=== PATIENT | female | born 1960 | race Caucasian/White ===

== ENCOUNTER 2016-08-02 13:11 | Emergency (ER) | payer MEDICARE, OTHER ==
[2016-08-02] MEDS ORDERED: levETIRAcetam 250 MG TABLET PO STA (15:40)
[2016-08-02] MEDS ORDERED: LORazepam 2 MG/ML SYRINGE IVP STA (15:46)
[2016-08-02] MEDS ORDERED: LORazepam 2 MG/ML SYRINGE ONE (15:51)
[2016-08-02] MEDS ORDERED: levETIRAcetam 250 MG TABLET ONE (15:51)
== END 2016-08-02 16:22 | disposition home or self-care (01) ==
DX: I67.3 Progressive vascular leukoencephalopathy (principal); R56.9 Unspecified convulsions; R29.704 NIHSS score 4; I45.10 Unspecified right bundle-branch block; Z86.73 Personal history of transient ischemic attack (TIA), and cerebral infarction without residual deficits; Z79.82 Long term (current) use of aspirin; E03.9 Hypothyroidism, unspecified; Z87.891 Personal history of nicotine dependence
CPT/HCPCS: 36415; 51701; 70450; 80053; 81003; 83690; 85025; 93005; 93010; 96374; 99284; 99285; A9270; J2060

== ENCOUNTER 2016-09-22 12:52 | Outpatient (CLI) | payer MEDICARE, OTHER | END 2016-09-22 12:53 | disposition home or self-care (01) | DX: M75.52 Bursitis of left shoulder (principal); M75.102 Unspecified rotator cuff tear or rupture of left shoulder, not specified as traumatic; M67.88 Other specified disorders of synovium and tendon, other site ==

== ENCOUNTER 2016-11-13 11:26 | Outpatient (CLI) | payer MEDICARE, OTHER | END 2016-11-13 11:27 | disposition home or self-care (01) | DX: R33.9 Retention of urine, unspecified (principal); E03.9 Hypothyroidism, unspecified ==

== ENCOUNTER 2016-11-13 15:00 | Outpatient (CLI) | payer MEDICARE, OTHER | END 2016-11-13 15:01 | disposition home or self-care (01) | DX: M51.26 Other intervertebral disc displacement, lumbar region (principal); M51.27 Other intervertebral disc displacement, lumbosacral region; M51.36 Other intervertebral disc degeneration, lumbar region; M43.16 Spondylolisthesis, lumbar region; M47.896 Other spondylosis, lumbar region; M47.897 Other spondylosis, lumbosacral region; M51.24 Other intervertebral disc displacement, thoracic region; M43.14 Spondylolisthesis, thoracic region; E03.9 Hypothyroidism, unspecified; R33.9 Retention of urine, unspecified ==

== ENCOUNTER 2016-11-15 09:15 | Outpatient (CLI) | payer MEDICARE, OTHER | END 2016-11-15 09:16 | DX: R33.9 Retention of urine, unspecified (principal); M54.5 Low back pain ==

== ENCOUNTER 2016-11-28 10:56 | Outpatient (CLI) | payer MEDICARE, OTHER | END 2016-11-28 10:57 | disposition home or self-care (01) | DX: R06.00 Dyspnea, unspecified (principal) ==

== ENCOUNTER 2017-01-22 09:20 | Outpatient (CLI) | payer MEDICARE, OTHER | END 2017-01-22 09:21 | disposition home or self-care (01) | LOC: LAB.WCP 09:20 | PROVIDERS: ATTEND Family Medicine | DX: N39.0 Urinary tract infection, site not specified (principal) | CPT/HCPCS: 87077; 87086 ==

== ENCOUNTER 2017-02-08 15:20 | Outpatient (CLI) | payer MEDICARE, OTHER | END 2017-02-08 15:21 | disposition home or self-care (01) | LOC: LAB.R 15:20 | PROVIDERS: ATTEND Family Medicine | DX: N39.0 Urinary tract infection, site not specified (principal) | CPT/HCPCS: 87077; 87086 ==

== ENCOUNTER 2017-02-19 13:12 | Outpatient (CLI) | payer MEDICARE, OTHER ==
[2017-02-19 19:34] LABS: BASOPHILS # (AUTO) 0.1 10^3/uL (0.0-0.1); BASOPHILS % (AUTO) 0.9 %; EOSINOPHILS # (AUTO) 0.2 10^3/uL (0.0-0.7); EOSINOPHILS % (AUTO) 2.2 %; HCT - HEMATOCRIT 38.6 % (37.0-47.0); HGB - HEMOGLOBIN 13.4 g/dL (12.0-16.0); LYMPHOCYTES # (AUTO) 2.3 10^3/uL (1.5-3.5); LYMPHOCYTES % (AUTO) 27.1 %; MEAN CORPUSCULAR HGB CONC 34.7 g/dL (32.0-36.0); MEAN PLATELET VOLUME 7.6 fL (7.9-10.8); MONOCYTES # (AUTO) 0.6 10^3/uL (0.0-1.0); MONOCYTES % (AUTO) 7.2 %; NEUTROPHILS # (AUTO) 5.3 10^3/uL (1.5-6.6); NEUTROPHILS % (AUTO) 62.6 %; NUCLEATED RED BLOOD CELLS AUTO 0.1 /100WBC; RED BLOOD COUNT 4.06 10^6/uL (4.20-5.40); RED CELL DISTRIBUTION WIDTH 12.4 % (12.0-15.0); UNCORRECTED WHITE BLOOD COUNT 8.4 x10^3/uL; WHITE BLOOD COUNT 8.4 x10^3/uL (4.8-10.8)
[2017-02-19 19:59] LABS: CALCIUM 9.9 mg/dL (8.5-10.3); CREATININE 0.8 mg/dL (0.4-1.0); POTASSIUM 4.3 mmol/L (3.5-5.0)
[2017-02-19 20:05] LABS: CHOL/HDL RATIO 3.5 (<4.4); CHOLESTEROL 224 mg/dL; HDL CHOLESTEROL 64 mg/dL; LDL/HDL RATIO 2.3 (<4.4); TRIGLYCERIDES 80 mg/dL; VLDL CHOLESTEROL 16 mg/dL
== END 2017-02-19 13:13 | disposition home or self-care (01) ==
LOC: LAB.WCP 13:12
PROVIDERS: ATTEND Family Medicine
DX: Z01.818 Encounter for other preprocedural examination (principal); N39.0 Urinary tract infection, site not specified; E78.5 Hyperlipidemia, unspecified
CPT/HCPCS: 36415; 80048; 80061; 85025; 87086

== ENCOUNTER 2017-08-18 11:11 | Emergency (ER) | payer MEDICARE, OTHER ==
--- NOTE | 2017-08-18 11:31 | ED Physician Documentation ---
PD HPI FOCAL NEURO - Stated complaint Stated Complaint: LEFT ARM NUMBNESS - Chief complaint Chief Complaint: Neuro - History obtained from History obtained from: Patient, Family - History of Present Illness Timing - onset: Enter time (1999), Last night Timing - duration: Hours Timing - details: Abrupt onset, Still present Severity of deficit: Moderate Numbness: Face, Hand, Foot, Left Associated symptoms: Nausea / vomiting. No: Headache, Seizure, Syncope, Fall, Head injury, Chest pain, Neck pain, Back pain, Fever Baseline status: positive: A&OX3, ambulatory, indep Similar symptoms before: Diagnosis (TIA and CVA with) Recently seen: Not recently seen - Additional information Additional information: 57-year-old female with a history of CADASIL has developed some numbness to her hand and arm yesterday evening and this morning awoke with numbness to her leg and foot as well as some numbness to her face and tongue. She does not have any motor component but does feel that she has some weakness to her left leg.She has had a stroke previously involving the janet. Review of Systems Constitutional: denies: Fever Eyes: denies: Decreased vision Ears: denies: Ear pain Nose: denies: Congestion Throat: denies: Sore throat Cardiac: denies: Chest pain / pressure, Palpitations Respiratory: denies: Dyspnea, Cough GI: denies: Abdominal Pain, Nausea, Vomiting : denies: Dysuria, Frequency Skin: denies: Rash Musculoskeletal: denies: Neck pain, Back pain, Extremity pain Neurologic: reports: Focal weakness (left lower ext), Numbness. 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 - Present Medications Home Medications: Ambulatory Orders Medication Instructions Recorded Confirmed Zolpidem [Ambien] 10 mg PO QPM 03/29/13 08/18/17 Aspirin [Aspir 81] 81 mg PO QPM 12/17/14 08/18/17 Promethazine [Phenergan] 25 mg PO Q6H PRN 12/17/14 08/18/17 Cholecalciferol (Vitamin D3) 2,000 units PO DAILY 08/18/17 08/18/17 [Vitamin D3] Levothyroxine Sodium 88 mcg PO QDAC 08/18/17 08/18/17 Nitrofurantoin Macrocrystal 50 mg PO DAILY 08/18/17 08/18/17 [Macrodantin] lamoTRIgine [LaMICtal] 100 mg PO BID 08/18/17 08/18/17 - Allergies Allergies/Adverse Reactions: Allergies Allergy/AdvReac Type Severity Reaction Status Date / Time propoxyphene napsylate * AdvReac vomit Verified 08/18/17 11:21 [From Darvocet-N 100] - Social History Does the pt smoke?: No Smoking Status: Former smoker Does the pt drink ETOH?: No Does the pt have substance abuse?: No - Immunizations Immunizations are current?: Yes - POLST Patient has POLST: No PD ED PE NORMAL - Vitals Vital signs reviewed: Yes (normal ) - General General: Alert and oriented X 3, No acute distress, Well developed/nourished - HEENT HEENT: Atraumatic, PERRL, EOMI, Ears normal, Moist mucous membranes, Pharynx benign, Dentition benign - Neck Neck: Supple, no meningeal sign, No bony TTP, No JVD, No bruit - Cardiac Cardiac: RRR, No murmur - Respiratory Respiratory: No respiratory distress, Clear bilaterally - Abdomen Abdomen: Soft, Non tender - Back Back: No CVA TTP, No spinal TTP - Derm Derm: Normal color, Warm and dry - Extremities Extremities: No deformity, No edema - Neuro Neuro: Alert and oriented X 3, steam table associate 2-12 intact, Normal speech, Other (There is decreased sensation to the left hand and forearm to the elbow. Subjectively tested. Similarly to the lower extremity the numbness goes up about to the mid calf. There is some mild weakness to dorsiflexion on the left side.) Eye Opening: Spontaneous Motor: Obeys Commands Verbal: Oriented GCS Score: 15 - Psych Psych: Normal mood, Normal affect NIHSS - Time Time: 11:23 - Level of Consciousness Level of consciousness: (0) Alert, Keenly responsive LOC Questions: (0) Answers both Q's correct LOC Commands: (0) Performs both correctly - Gaze Best Gaze: (0) Normal - Visual Visual: (0) No loss - Facial Palsy Facial Palsy: (0) Normal, symmetrical movement - Motor Arms (both separate) Motor Arm (right): (0) No drift Motor Arm (left): (0) No drift - Motor Legs (both separate) Motor Leg (right): (0) No drift Motor Leg (left): (0) No drift - Limb Ataxia Limb Ataxia: (0) Absent - Sensory Sensory: (1) Zaak-wj-szustbvd loss - Best Language Best Language: (0) No aphasia - Dysarthria Dysarthria: (0) Normal - Extinction and Inattention (formally neg Extinction and inattention: (0) No abnormality - Total Score/Results Total Score/Result: 1 Results - Vitals Vitals: Vital Signs - 24 hr 08/18/17 08/18/17 08/18/17 11:16 13:25 15:18 Temperature 35.8 C L Heart Rate 85 66 80 Respiratory 18 16 16 Rate Blood Pressure 123/81 H 119/75 120/77 O2 Saturation 96 97 96 08/18/17 08/18/17 16:25 16:51 Temperature Heart Rate 67 67 Respiratory 16 16 Rate Blood Pressure 112/68 112/77 O2 Saturation 98 98 Oxygen O2 Source Room air - EKG (time done) 1218 Rate: Rate (enter#) (70) Rhythm: NSR Intervals: RBBB Compare to prior EKG: Unchanged from prior EKG (08-02-16) Computer interpretation: Agree with computer - Labs Labs: Laboratory Tests 08/18/17 08/18/17 08/18/17 11:22 11:22 11:22 WBC 7.1 RBC 4.52 Hgb 14.4 Hct 42.4 MCV 93.8 MCH 31.9 H MCHC 34.0 RDW 12.7 Plt Count 283 MPV 6.9 L Neut # 4.6 Lymph # 1.9 Fergus # 0.4 Eos # 0.2 Baso # 0.1 Absolute Nucleated RBC 0.01 Nucleated RBC % 0.1 Sodium 140 Potassium 4.3 Chloride 105 Carbon Dioxide 25 Anion Gap 10.0 BUN 16 Creatinine 0.8 Estimated GFR (MDRD) 73 L Glucose 105 H Calcium 9.9 Total Bilirubin 1.4 H AST 22 ALT 21 Alkaline Phosphatase 93 Troponin I < 0.04 Total Protein 8.1 Albumin 4.3 Globulin 3.8 Albumin/Globulin Ratio 1.1 Lipase 22 Urine Color Urine Clarity Urine pH Ur Specific [place] Urine Protein Urine Glucose (UA) Urine Ketones Urine Occult Blood Urine Nitrite Urine Bilirubin Urine Urobilinogen Ur Leukocyte Esterase Urine RBC Urine WBC Ur Squamous Epith Cells Amorphous Sediment Urine Bacteria Ur Microscopic Review Urine Culture Comments 08/18/17 13:55 WBC RBC Hgb Hct MCV MCH MCHC RDW Plt Count MPV Neut # Lymph # [place] # Eos # Baso # Absolute Nucleated RBC Nucleated RBC % Sodium Potassium Chloride Carbon Dioxide Anion Gap BUN Creatinine Estimated GFR (MDRD) Glucose Calcium Total Bilirubin AST ALT Alkaline Phosphatase Troponin I Total Protein Albumin Globulin Albumin/Globulin Ratio Lipase Urine Color YELLOW Urine Clarity SL. CLOUDY Urine pH 7.5 Ur Specific [place] 1.010 Urine Protein NEGATIVE Urine Glucose (UA) NEGATIVE Urine Ketones TRACE Urine Occult Blood NEGATIVE Urine Nitrite NEGATIVE Urine Bilirubin NEGATIVE Urine Urobilinogen 0.2 (NORMAL) Ur Leukocyte Esterase TRACE H Urine RBC 0-5 Urine WBC 4-5 Ur Squamous Epith Cells MANY Squamous H Amorphous Sediment Moderate Urine Bacteria Few Ur Microscopic Review INDICATED Urine Culture Comments NOT INDICATED - Rads (name of study) CT head without Radiology: Prelim report reviewed, EMP read indepedently, See rad report CT head angiogram Radiology: Prelim report reviewed (Impression: 1. Normal CTA of the head. No significant vascular stenosis or aneurysm.), EMP read indepedently, See rad report PD MEDICAL DECISION MAKING - ED course Complexity details: reviewed results, re-evaluated patient, considered differential, d/w patient, d/w family, d/w workday consultant ([facility] in [place] ) ED course: 57-year-old female with CADASIL and another CVA which appears completed today. She is examined here in the emergency department she has an NIH score of [address] Saeed is consulted in the case for admission and asks the obvious question about what we will do here. Her neurologist Dr. Rosales is consulted in the case and he indicates there is nothing specific available for treatment for this condition and the patient has had prior workup for CVA. Admission to the hospital is not considered necessary for workup. She does appear safe to be at home with her and does not appear to have a deficit that would cause her harm. She is discharged to home. Departure - Departure Disposition: 01 Home, Self Care Clinical Impression: Cerebrovascular accident (CVA) Qualifiers: CVA mechanism: unspecified Qualified Code(s): I63.9 - Cerebral infarction, unspecified Condition: Stable Instructions: ED Stroke Completed Follow-Up: Claudine Malcolm MD [Primary Care Provider] - Tom Rosales MD [Physician No Access] - Discharge Date/Time: 08/18/17 16:56
[2017-08-18 11:49] LABS: BASOPHILS # (AUTO) 0.1 10^3/uL (0.0-0.1); BASOPHILS % (AUTO) 1.1 %; EOSINOPHILS # (AUTO) 0.2 10^3/uL (0.0-0.7); EOSINOPHILS % (AUTO) 2.2 %; HGB - HEMOGLOBIN 14.4 g/dL (12.0-16.0); LYMPHOCYTES # (AUTO) 1.9 10^3/uL (1.5-3.5); LYMPHOCYTES % (AUTO) 26.7 %; MEAN CORPUSCULAR HEMOGLOBIN 31.9 pg (27.0-31.0); MEAN CORPUSCULAR VOLUME 93.8 fL (81.0-99.0); MEAN PLATELET VOLUME 6.9 fL (7.9-10.8); MONOCYTES # (AUTO) 0.4 10^3/uL (0.0-1.0); MONOCYTES % (AUTO) 6.2 %; NEUTROPHILS # (AUTO) 4.6 10^3/uL (1.5-6.6); NEUTROPHILS % (AUTO) 63.8 %; PLT - PLATELET COUNT 283 10^3/uL (130-450); RED BLOOD COUNT 4.52 10^6/uL (4.20-5.40); RED CELL DISTRIBUTION WIDTH 12.7 % (12.0-15.0); WHITE BLOOD COUNT 7.1 x10^3/uL (4.8-10.8)
[2017-08-18] MEDS ORDERED: IOPAMIDOL-300 100 ML VIAL ONE (11:53)
--- NOTE | 2017-08-18 11:54 | CT Report ---
EXAM: CT HEAD WITHOUT CONTRAST EXAM DATE: 08/18/2017 11:40 AM. CLINICAL HISTORY: Left sided numbness in the tongue, hand and foot in a 57-year-old female. COMPARISON: Similar prior studies, most recent performed on 08/02/2016. TECHNIQUE: Multiaxial CT images were obtained from the foramen magnum to the vertex on an emergent ba sis. Reformats: Coronal. IV contrast: None. In accordance with CT protocol optimization, one or more of the following dose reduction techniques w ere utilized for this exam: automated exposure control, adjustment of mA and/or KV based on patient s ize, or use of iterative reconstructive technique. FINDINGS: Parenchyma: No intraparenchymal hemorrhage. No evidence of mass, midline shift, or CT findings of acu te infarction. Patchy areas of low attenuation bilaterally consistent with small lacunar infarcts, si milar to earlier studies. Nolen-white differentiation is distinct. Diffuse chronic moderate microangio pathic white matter changes are evident. Extraaxial Spaces: Normal for age. No subdural or epidural collections identified. Ventricles: The ventricles and cortical sulci are enlarged, consistent with age-related tissue loss. Sinuses and orbits: Imaged paranasal sinuses, orbits, and mastoids show no significant abnormality. Bones: No evidence of fracture or calvarial defect. Other: None. IMPRESSION: Stable head CT. No acute intracranial process. Old small bilateral lacunar infarcts, lasha lar to prior exam. [facility] Referring Provider Line: [phone] SITE ID: [id number]
[2017-08-18 12:01] LABS: ALBUMIN 4.3 g/dL (3.2-5.5); ALBUMIN/GLOBULIN RATIO 1.1 (1.0-2.2); BILIRUBIN,TOTAL 1.4 mg/dL (0.2-1.0); CALCIUM 9.9 mg/dL (8.5-10.3); CREATININE 0.8 mg/dL (0.4-1.0); TOTAL PROTEIN 8.1 g/dL (6.7-8.2)
[2017-08-18] MEDS ORDERED: IOPAMIDOL-300 100 ML VIAL IVP ONE (12:27)
--- NOTE | 2017-08-18 13:12 | CT Report ---
EXAM: CT ANGIOGRAM HEAD. EXAM DATE: 08/18/2017 12:26 PM CLINICAL HISTORY: 57-year-old woman with left-sided numbness. COMPARISON: Noncontrast head CT done medially before. TECHNIQUE: - CT Angiogram: Using a multidetector scanner, high-resolution axial images were acquired from the sk ull base through vertex following rapid infusion of intravenous contrast. Reformats: Multiplanar MIP reformats were reconstructed. Nascet criteria used for stenosis measurement. - CT head: Axial images were acquired through from the skull base through vertex following CTA. IV Contrast: 80 cc Isovue-300. In accordance with CT protocol optimization, one or more of the following dose reduction techniques w ere utilized for this exam: automated exposure control, adjustment of mA and/or KV based on patient s ize, or use of iterative reconstructive technique. FINDINGS: CTA HEAD: RIGHT: Visualized Internal Carotid: Patent without significant stenosis or aneurysm. There is mild atheroscl erotic plaque along the siphon. Anterior Cerebral: Patent without significant stenosis or aneurysm. Middle Cerebral: Patent without significant stenosis or aneurysm. Posterior Cerebral: Patent without significant stenosis or aneurysm. Posterior Communicating: Patent. No aneurysm. Visualized Vertebral: Patent without significant stenosis or dissection. LEFT: Visualized Internal Carotid: Patent without significant stenosis or aneurysm. There is mild atheroscl erotic plaque along the siphon. Anterior Cerebral: Patent without significant stenosis or aneurysm. Middle Cerebral: Patent without significant stenosis or aneurysm. Posterior Cerebral: Patent without significant stenosis or aneurysm. Posterior Communicating: Patent. No aneurysm. Visualized Vertebral: Patent without significant stenosis or dissection. CENTRAL: Anterior Communicating: Patent. No aneurysm. Basilar: Patent without significant stenosis, dissection, or aneurysm. Dural Venous Sinuses and Major Central Veins: Patent. POSTCONTRAST HEAD: No abnormal enhancement. CENTRAL: Anterior Communicating Artery: Patent. No aneurysm. Basilar Artery: Patent without significant stenosis. No aneurysm. DURAL VENOUS SINUSES AND MAJOR CENTRAL VEINS: Patent. IMPRESSION: 1. Normal CTA of the head. No significant vascular stenosis or aneurysm. [facility] Referring Provider Line: [phone] SITE ID: [id number]
[2017-08-18 14:12] LABS: BILIRUBIN,URINE NEGATIVE (NEGATIVE); CLARITY,URINE SL. CLOUDY (CLEAR); GLUCOSE, URINE (UA) NEGATIVE (NEGATIVE); KETONES,URINE (UA) TRACE mg/dL (NEGATIVE); LEUKOCYTE ESTERASE, URINE TRACE (NEGATIVE); NITRITE,URINE NEGATIVE (NEGATIVE); OCCULT BLOOD,URINE NEGATIVE (NEGATIVE); PH,URINE 7.5 PH (5.0-7.5); PROTEIN,URINE NEGATIVE (NEGATIVE); UROBILINOGEN,URINE 0.2 (NORMAL) E.U./dL (NORMAL)
[2017-08-18 14:20] LABS: AMORPHOUS SEDIMENT,UR Moderate /LPF; BACTERIA,URINE Few /HPF (None Seen); RBC,URINE 0-5 /HPF (0-5); SQUAMOUS EPITHELIAL CELL,UR MANY Squamous (<= Few)
[2017-08-18 16:52] VITALS: BP 112/77
== END 2017-08-18 16:56 | disposition home or self-care (01) ==
LOC: ED 11:11
DX: I63.9 Cerebral infarction, unspecified (principal); I45.10 Unspecified right bundle-branch block; E03.9 Hypothyroidism, unspecified; Z87.891 Personal history of nicotine dependence; Z79.82 Long term (current) use of aspirin
CPT/HCPCS: 36415; 70450; 70496; 80053; 81001; 83690; 84484; 85025; 93005; 99284; Q9967; 81003; 87086

== ENCOUNTER 2018-02-10 08:00 | Outpatient (CLI) | payer MEDICARE, OTHER ==
[2018-02-10 12:50] LABS: BASOPHILS # (AUTO) 0.1 10^3/uL (0.0-0.1); BASOPHILS % (AUTO) 1.3 %; EOSINOPHILS # (AUTO) 0.3 10^3/uL (0.0-0.7); EOSINOPHILS % (AUTO) 4.5 %; HGB - HEMOGLOBIN 13.2 g/dL (12.0-16.0); LYMPHOCYTES % (AUTO) 30.2 %; MEAN CORPUSCULAR HEMOGLOBIN 33.2 pg (27.0-31.0); MEAN CORPUSCULAR HGB CONC 34.6 g/dL (32.0-36.0); MEAN CORPUSCULAR VOLUME 96.1 fL (81.0-99.0); MEAN PLATELET VOLUME 7.1 fL (7.9-10.8); MONOCYTES # (AUTO) 0.5 10^3/uL (0.0-1.0); MONOCYTES % (AUTO) 6.9 %; NEUTROPHILS # (AUTO) 3.8 10^3/uL (1.5-6.6); NEUTROPHILS % (AUTO) 57.1 %; PLT - PLATELET COUNT 274 10^3/uL (130-450); RED BLOOD COUNT 3.96 10^6/uL (4.20-5.40); RED CELL DISTRIBUTION WIDTH 12.6 % (12.0-15.0); WHITE BLOOD COUNT 6.7 x10^3/uL (4.8-10.8)
[2018-02-10 13:14] LABS: ALBUMIN 3.9 g/dL (3.2-5.5); ALBUMIN/GLOBULIN RATIO 1.3 (1.0-2.2); ALKALINE PHOSPHATASE 78 IU/L (42-121); ALT ALANINE AMINOTRANSFERASE 15 IU/L (10-60); AST ASPARTATE AMINOTRANSFERASE 18 IU/L (10-42); BILIRUBIN,TOTAL 0.8 mg/dL (0.2-1.0); BUN - BLOOD UREA NITROGEN 18 mg/dL (6-20); CALCIUM 9.1 mg/dL (8.5-10.3); CARBON DIOXIDE - CO2 29 mmol/L (21-32); CHLORIDE 106 mmol/L (101-111); CHOL/HDL RATIO 3.7 (<4.4); CHOLESTEROL 220 mg/dL; CREATININE 0.9 mg/dL (0.4-1.0); GFR - MDRD 64 (>89); GLUCOSE 94 mg/dL (70-100); HDL CHOLESTEROL 60 mg/dL; LDL CHOLESTEROL,CALCULATED 146 mg/dL; LDL/HDL RATIO 2.4 (<4.4); SODIUM 140 mmol/L (135-145); VLDL CHOLESTEROL 14 mg/dL
== END 2018-02-10 08:01 | disposition home or self-care (01) ==
LOC: LAB.WCP 08:00
PROVIDERS: ATTEND Family Medicine
DX: E78.5 Hyperlipidemia, unspecified (principal); E55.9 Vitamin D deficiency, unspecified; E03.9 Hypothyroidism, unspecified; G40.909 Epilepsy, unspecified, not intractable, without status epilepticus; G45.9 Transient cerebral ischemic attack, unspecified; F32.9 Major depressive disorder, single episode, unspecified
CPT/HCPCS: 36415; 80053; 80061; 82306; 83721; 84443; 85025

== ENCOUNTER 2018-03-18 08:04 | Outpatient (CLI) | payer MEDICARE, OTHER ==
[2018-03-18 13:00] LABS: THYROID STIMULATING HORMONE 6.3 uIU/mL (0.34-5.60)
[2018-03-18 13:02] LABS: FREE T4 (FREE THYROXINE) 1.07 ng/dL (0.58-1.64)
== END 2018-03-18 08:05 | disposition home or self-care (01) ==
LOC: LAB.WCP 08:04
PROVIDERS: ATTEND Family Medicine
DX: E03.9 Hypothyroidism, unspecified (principal)
CPT/HCPCS: 36415; 84439; 84443; 84481

== ENCOUNTER 2018-04-30 08:50 | Outpatient (CLI) | payer MEDICARE, OTHER ==
[2018-04-30 14:14] LABS: THYROID STIMULATING HORMONE 1.89 uIU/mL (0.34-5.60)
[2018-04-30 14:16] LABS: FREE T4 (FREE THYROXINE) 1.43 ng/dL (0.58-1.64)
== END 2018-04-30 08:51 ==
LOC: LAB.WCP 08:50
PROVIDERS: ATTEND Family Medicine
DX: E03.9 Hypothyroidism, unspecified (principal)
CPT/HCPCS: 36415; 84439; 84443; 84481

== ENCOUNTER 2018-07-24 11:18 | Outpatient (CLI) | payer MEDICARE, OTHER ==
--- NOTE | 2018-07-24 13:16 | XRAY Report ---
Reason: UNSP FALL,BACK PAIN,LUMBAR Procedure Date: 07/24/2018 Accession Number: [id number] / [id number] Procedure: XR - Lumbar Spine Complete CPT Code: FULL RESULT: EXAM: LUMBOSACRAL SPINE RADIOGRAPHY EXAM DATE: 07/24/2018 12:29 PM. CLINICAL HISTORY: Pain post injury after a fall COMPARISONS: Lumbar spine without contrast 11/13/2016 3:45 PM. TECHNIQUE: 3 views. FINDINGS: Alignment: Abnormal. Approximately 1 cm of L4 on L5 anterolisthesis. About 12 degrees broad-based dextroconvex asymmetric lower thoracic curve centered at T10-T11. Mild levoconvex asymmetric lumbar curve also about 8 degrees. Bones: Five [id number]-ranizfw lumbar vertebral bodies are present. No evidence for acute fracture or acute vertebral body collapse. Mild chronic anterior wedging at T9, T10 and T11. Disks: Moderate degenerative disk space narrowing especially posteriorly at L4-L5 and L5-S1. Mild to moderate anterior degenerative disk disease with spurring also in the lower thoracic spine. Facets: Moderate to marked facet arthropathy at L4-L5 and L5-S1. Sacroiliac Joints: Unremarkable. Soft Tissues: Previous cholecystectomy. Nonobstructive bowel gas pattern. IMPRESSION: Scoliosis. Multilevel chronic degenerative changes. No evidence for acute fracture. Chronic appearing minimal to mild anterior compression deformities at T9, T10 and T11. Notable degenerative anterolisthesis of L4 on L5 potentially associated with spinal stenosis that could be further characterized as clinically warranted with CT or MRI. [facility]
== END 2018-07-24 11:19 | disposition home or self-care (01) ==
LOC: DI 11:18
PROVIDERS: ATTEND Family Medicine
DX: M51.36 Other intervertebral disc degeneration, lumbar region (principal); M47.9 Spondylosis, unspecified; M51.37 Other intervertebral disc degeneration, lumbosacral region; M43.16 Spondylolisthesis, lumbar region; M48.54XA Collapsed vertebra, not elsewhere classified, thoracic region, initial encounter for fracture; M51.34 Other intervertebral disc degeneration, thoracic region
CPT/HCPCS: 72110

== ENCOUNTER 2018-11-07 08:00 | Outpatient (CLI) | payer MEDICARE, OTHER | END 2018-11-07 23:59 | disposition home or self-care (01) | LOC: LAB.R 08:00 | PROVIDERS: ATTEND Family Medicine | DX: N39.0 Urinary tract infection, site not specified (principal) | CPT/HCPCS: 87086 ==

== ENCOUNTER 2019-03-06 08:00 | Outpatient (CLI) | payer MEDICARE, OTHER | END 2019-03-06 23:59 | LOC: LAB.R 08:00 | PROVIDERS: ATTEND Physician Assistant | DX: N39.0 Urinary tract infection, site not specified (principal) | CPT/HCPCS: 87086 ==

== ENCOUNTER 2019-05-11 07:00 | Outpatient (CLI) | payer MEDICARE, OTHER ==
[2019-05-11 12:10] LABS: BASOPHILS # (AUTO) 0.1 10^3/uL (0.0-0.1); BASOPHILS % (AUTO) 1.2 %; EOSINOPHILS # (AUTO) 0.3 10^3/uL (0.0-0.7); EOSINOPHILS % (AUTO) 5.1 %; HGB - HEMOGLOBIN 13.3 g/dL (12.0-16.0); LYMPHOCYTES % (AUTO) 30.2 %; MEAN CORPUSCULAR HGB CONC 32.9 g/dL (32.0-36.0); MEAN CORPUSCULAR VOLUME 97.1 fL (81.0-99.0); MEAN PLATELET VOLUME 9.5 fL (7.9-10.8); MONOCYTES # (AUTO) 0.6 10^3/uL (0.0-1.0); MONOCYTES % (AUTO) 9.1 %; NEUTROPHILS # (AUTO) 3.5 10^3/uL (1.5-6.6); NEUTROPHILS % (AUTO) 53.9 %; PLT - PLATELET COUNT 285 10^3/uL (130-450); RED BLOOD COUNT 4.16 10^6/uL (4.20-5.40); RED CELL DISTRIBUTION WIDTH 12.4 % (12.0-15.0); WHITE BLOOD COUNT 6.5 x10^3/uL (4.8-10.8)
[2019-05-11 12:53] LABS: ALBUMIN 4.2 g/dL (3.2-5.5); ALBUMIN/GLOBULIN RATIO 1.3 (1.0-2.2); ALKALINE PHOSPHATASE 86 IU/L (42-121); ALT ALANINE AMINOTRANSFERASE 12 IU/L (10-60); AST ASPARTATE AMINOTRANSFERASE 17 IU/L (10-42); BILIRUBIN,TOTAL 0.7 mg/dL (0.2-1.0); BUN - BLOOD UREA NITROGEN 17 mg/dL (6-20); CALCIUM 9.6 mg/dL (8.5-10.3); CARBON DIOXIDE - CO2 29 mmol/L (21-32); CHLORIDE 107 mmol/L (101-111); CHOL/HDL RATIO 3.4 (<4.4); CHOLESTEROL 220 mg/dL; CREATININE 0.9 mg/dL (0.4-1.0); GFR - MDRD 64 (>89); GLUCOSE 103 mg/dL (70-100); HDL CHOLESTEROL 64 mg/dL; LDL CHOLESTEROL,CALCULATED 141 mg/dL; LDL/HDL RATIO 2.2 (<4.4); SODIUM 144 mmol/L (135-145); TOTAL PROTEIN 7.4 g/dL (6.7-8.2); VLDL CHOLESTEROL 15 mg/dL
== END 2019-05-11 23:59 | disposition home or self-care (01) ==
LOC: LAB.WCP 07:00
PROVIDERS: ATTEND Physician Assistant
DX: E03.9 Hypothyroidism, unspecified (principal); E55.9 Vitamin D deficiency, unspecified; E78.5 Hyperlipidemia, unspecified
CPT/HCPCS: 36415; 80053; 80061; 82306; 83721; 84443; 85025

== ENCOUNTER 2019-07-16 07:00 | Outpatient (CLI) | payer MEDICARE, OTHER | END 2019-07-16 23:59 | disposition home or self-care (01) | LOC: LAB.R 07:00 | PROVIDERS: ATTEND Family Medicine | DX: N39.0 Urinary tract infection, site not specified (principal) | CPT/HCPCS: 87086 ==

== ENCOUNTER 2019-07-24 17:00 | Outpatient (CLI) | payer MEDICARE, OTHER ==
[2019-07-24 19:47] LABS: BILIRUBIN,URINE NEGATIVE (NEGATIVE); GLUCOSE, URINE (UA) NEGATIVE (NEGATIVE); KETONES,URINE (UA) NEGATIVE (NEGATIVE); LEUKOCYTE ESTERASE, URINE LARGE (NEGATIVE); NITRITE,URINE NEGATIVE (NEGATIVE); OCCULT BLOOD,URINE LARGE (NEGATIVE); PH,URINE 7.5 PH (5.0-7.5); PROTEIN,URINE 100 mg/dL (NEGATIVE); UROBILINOGEN,URINE 0.2 (NORMAL) E.U./dL (NORMAL)
[2019-07-24 20:18] LABS: CLARITY,URINE SL. CLOUDY (CLEAR); RBC,URINE TNTC /HPF (0-5)
[2019-07-24 20:19] LABS: AMORPHOUS SEDIMENT,UR Moderate /LPF; BACTERIA,URINE Few /HPF (None Seen); CRYSTALS,URINE 6-10 Triple Phos /LPF; SQUAMOUS EPITHELIAL CELL,UR MOD Squamous (<= Few)
== END 2019-07-24 23:59 | disposition home or self-care (01) ==
LOC: LAB.R 17:00
PROVIDERS: ATTEND Physician Assistant
DX: N39.0 Urinary tract infection, site not specified (principal)
CPT/HCPCS: 81001; 81003; 87086

== ENCOUNTER 2019-07-29 08:45 | Outpatient (CLI) | payer MEDICARE, OTHER | END 2019-07-29 23:59 | disposition home or self-care (01) | LOC: LAB.R 08:45 | PROVIDERS: ATTEND Family Medicine | DX: N39.0 Urinary tract infection, site not specified (principal) | CPT/HCPCS: 87086 ==

== ENCOUNTER 2019-08-12 07:00 | Outpatient (CLI) | payer MEDICARE, OTHER ==
[2019-08-12 19:40] LABS: HB2 TOTAL 14.2 g/dL; HEMOGLOBIN A1C 0.51 g/dL; HEMOGLOBIN A1C % 5.4 % (4.6-6.2)
== END 2019-08-12 23:59 | disposition home or self-care (01) ==
LOC: LAB.WCP 07:00
PROVIDERS: ATTEND Physician Assistant
DX: Z79.899 Other long term (current) drug therapy (principal)
CPT/HCPCS: 36415; 83036

== ENCOUNTER 2019-08-24 11:06 | Outpatient (CLI) | payer MEDICARE, OTHER ==
[2019-08-24 19:06] LABS: BASOPHILS # (AUTO) 0.1 10^3/uL (0.0-0.1); EOSINOPHILS # (AUTO) 0.2 10^3/uL (0.0-0.7); EOSINOPHILS % (AUTO) 3.2 %; HGB - HEMOGLOBIN 13.3 g/dL (12.0-16.0); LYMPHOCYTES # (AUTO) 2.4 10^3/uL (1.5-3.5); LYMPHOCYTES % (AUTO) 34.8 %; MEAN CORPUSCULAR HEMOGLOBIN 32.5 pg (27.0-31.0); MEAN CORPUSCULAR HGB CONC 32.6 g/dL (32.0-36.0); MEAN CORPUSCULAR VOLUME 99.8 fL (81.0-99.0); MEAN PLATELET VOLUME 9.1 fL (7.9-10.8); MONOCYTES # (AUTO) 0.5 10^3/uL (0.0-1.0); MONOCYTES % (AUTO) 7.8 %; NEUTROPHILS # (AUTO) 3.6 10^3/uL (1.5-6.6); NEUTROPHILS % (AUTO) 52.9 %; PLT - PLATELET COUNT 310 10^3/uL (130-450); RED BLOOD COUNT 4.09 10^6/uL (4.20-5.40); RED CELL DISTRIBUTION WIDTH 12.9 % (12.0-15.0); WHITE BLOOD COUNT 6.8 x10^3/uL (4.8-10.8)
[2019-08-24 19:20] LABS: CALCIUM 9.6 mg/dL (8.5-10.3); CREATININE 0.8 mg/dL (0.4-1.0)
== END 2019-08-24 23:59 | disposition home or self-care (01) ==
LOC: LAB.WCP 11:06
PROVIDERS: ATTEND Orthopaedic Surgery
DX: Z01.812 Encounter for preprocedural laboratory examination (principal)
CPT/HCPCS: 36415; 80048; 85025

== ENCOUNTER 2020-01-20 15:45 | Outpatient (CLI) | payer MEDICARE, OTHER ==
[2020-01-20 18:46] LABS: BASOPHILS # (AUTO) 0.1 10^3/uL (0.0-0.1); BASOPHILS % (AUTO) 0.8 %; EOSINOPHILS # (AUTO) 0.2 10^3/uL (0.0-0.7); EOSINOPHILS % (AUTO) 1.6 %; LYMPHOCYTES # (AUTO) 2.5 10^3/uL (1.5-3.5); LYMPHOCYTES % (AUTO) 27.3 %; MEAN CORPUSCULAR HEMOGLOBIN 33.2 pg (27.0-31.0); MEAN CORPUSCULAR HGB CONC 34.2 g/dL (32.0-36.0); MEAN CORPUSCULAR VOLUME 96.9 fL (81.0-99.0); MEAN PLATELET VOLUME 9.5 fL (7.9-10.8); MONOCYTES # (AUTO) 0.8 10^3/uL (0.0-1.0); MONOCYTES % (AUTO) 8.4 %; NEUTROPHILS # (AUTO) 5.6 10^3/uL (1.5-6.6); NEUTROPHILS % (AUTO) 61.6 %; PLT - PLATELET COUNT 304 10^3/uL (130-450); RED BLOOD COUNT 4.22 10^6/uL (4.20-5.40); RED CELL DISTRIBUTION WIDTH 12.4 % (12.0-15.0); WHITE BLOOD COUNT 9.2 x10^3/uL (4.8-10.8)
[2020-01-20 19:15] LABS: ALBUMIN 5.1 g/dL (3.2-5.5); ALBUMIN/GLOBULIN RATIO 1.5 (1.0-2.2); ALKALINE PHOSPHATASE 84 IU/L (42-121); ALT ALANINE AMINOTRANSFERASE 16 IU/L (10-60); AMYLASE 46 U/L (28-100); AST ASPARTATE AMINOTRANSFERASE 19 IU/L (10-42); BILIRUBIN,TOTAL 0.9 mg/dL (0.2-1.0); BUN - BLOOD UREA NITROGEN 15 mg/dL (6-20); CALCIUM 10.1 mg/dL (8.5-10.3); CARBON DIOXIDE - CO2 28 mmol/L (21-32); CHLORIDE 103 mmol/L (101-111); CHOL/HDL RATIO 5.1 (<4.4); CHOLESTEROL 278 mg/dL; GLUCOSE 92 mg/dL (70-100); HDL CHOLESTEROL 55 mg/dL; LDL CHOLESTEROL,CALCULATED 199 mg/dL; LDL/HDL RATIO 3.6 (<4.4); LIPASE 27 U/L (22-51); SODIUM 141 mmol/L (135-145); TOTAL PROTEIN 8.5 g/dL (6.7-8.2); VLDL CHOLESTEROL 24 mg/dL
== END 2020-01-20 23:59 | disposition home or self-care (01) ==
LOC: LAB.WCP 15:45
PROVIDERS: ATTEND Nurse Practitioner Family
DX: E78.5 Hyperlipidemia, unspecified (principal); R11.10 Vomiting, unspecified; E03.9 Hypothyroidism, unspecified
CPT/HCPCS: 36415; 80053; 80061; 82150; 83690; 83721; 84443; 85025

== ENCOUNTER 2020-01-22 08:10 | Outpatient (CLI) | payer MEDICARE, OTHER ==
[2020-01-22 20:02] LABS: H. PYLORIS ANTIGEN STL NEGATIVE (Negative)
== END 2020-01-22 23:59 | disposition home or self-care (01) ==
LOC: LAB.R 08:10
PROVIDERS: ATTEND Nurse Practitioner Family
DX: R11.10 Vomiting, unspecified (principal); K27.9 Peptic ulcer, site unspecified, unspecified as acute or chronic, without hemorrhage or perforation; K21.9 Gastro-esophageal reflux disease without esophagitis
CPT/HCPCS: 87338

== ENCOUNTER 2020-04-27 11:18 | Outpatient (CLI) | payer OTHER, MEDICARE ==
--- NOTE | 2020-04-27 17:36 | XRAY Report ---
PROCEDURE: Shoulder 3 View LT INDICATIONS: PAIN IN LT SHOULDER LT KNEE PAIN TECHNIQUE: 3 views of the shoulder were acquired. COMPARISON: None. FINDINGS: Bones: No acute fractures or dislocations. Coracoclavicular interval is maintained. There is widenin g of the acromioclavicular interval consistent with prior distal clavicular resection. No suspicious bony lesions. Visualized ribs appear intact. Soft tissues: No suspicious soft tissue calcifications. IMPRESSION: Left shoulder without acute fracture or malalignment. Reviewed by: Samuel Muse MD on 04/27/2020 5:34 PM PDT Approved by: Samuel Muse MD on 04/27/2020 5:34 PM PDT Station ID: [id number]
--- NOTE | 2020-04-27 17:37 | XRAY Report ---
PROCEDURE: Knee 2 View LT INDICATIONS: PAIN IN LT SHOULDER LT KNEE PAIN TECHNIQUE: 2 views of the left knee(s) were acquired. COMPARISON: None. FINDINGS: Bones: No acute fractures or dislocations. Mild tricompartmental degenerative changes of the left k nee. No significant joint space loss. No suspicious bony lesions. Soft tissues: No joint effusion. No suspicious soft tissue calcifications. IMPRESSION: Left knee without acute radiographic abnormalities. Mild tricompartmental osteoarthrosis . If there is continued clinical concern for internal soft tissue derangement, consider further evalua tion with MRI. Reviewed by: Samuel Muse MD on 04/27/2020 5:36 PM PDT Approved by: Samuel Muse MD on 04/27/2020 5:36 PM PDT Station ID: [id number]
== END 2020-04-27 11:19 | disposition home or self-care (01) ==
LOC: DI 11:18
PROVIDERS: ATTEND Physician Assistant
DX: M25.512 Pain in left shoulder (principal); M17.12 Unilateral primary osteoarthritis, left knee

== ENCOUNTER 2020-10-06 10:07 | Outpatient (CLI) | payer MEDICARE, OTHER ==
--- NOTE | 2020-10-06 17:49 | DEXA Report ---
PROCEDURE: Dexa Spine and/or Hip INDICATIONS: POSTMENOPAUSAL TECHNIQUE: Dual energy x-ray absorptiometry (DXA) was performed on a [employer] First System. Regions measur ed are the AP Spine, femoral neck, and if needed forearm. COMPARISON: None. FINDINGS: Lumbar Spine: Bone Mineral Density 0.895 g/cm/cm,T score -2.3, osteopenia Left Hip: Bone Mineral Density 0.780 g/cm/cm,T score -1.8, osteopenia Left Femoral Neck: Bone Mineral Density 0.664 g/cm/cm, T score -2.7, osteoporosis (T score greater or equal to -1.0: NORMAL) (T score from -1.1 to -2.4: OSTEOPENIA) (T score less than or equal to -2.5 to: OSTEOPOROSIS) Impression: Osteoporosis. Patients with diagnosis of osteoporosis or osteopenia should have regular bone mineral density assess ment. For those eligible for Medicare, routine testing is allowed once every 2 years. Testing frequ ency can be increased for patients who have rapidly progressing disease or for those who are receivin g medical therapy to restore bone mass. Reviewed by: Verito Wilkes MD, PhD on 10/06/2020 5:48 PM PDT Approved by: Verito Wilkes MD, PhD on 10/06/2020 5:48 PM PDT Station ID: [id number]
== END 2020-10-06 10:08 | disposition home or self-care (01) ==
LOC: DI 10:07
PROVIDERS: ATTEND Physician Assistant Medical
DX: M81.0 Age-related osteoporosis without current pathological fracture (principal)

== ENCOUNTER 2020-11-18 09:16 | Outpatient (CLI) | payer MEDICARE, OTHER | END 2020-11-18 09:17 | disposition critical access hospital (66) | LOC: EMS 09:16 | DX: R53.1 Weakness (principal); R50.9 Fever, unspecified | CPT/HCPCS: A0425; A0429 ==

== ENCOUNTER 2020-11-18 09:35 | Emergency (ER) | payer MEDICARE, OTHER ==
--- NOTE | 2020-11-18 09:48 | ED Physician Documentation ---
PD HPI ALTERED MENTAL STATUS - Stated complaint Stated Complaint: WEAKNESS - Chief complaint Chief Complaint: Neuro - History obtained from History obtained from: Patient - History of Present Illness Timing - onset: How many weeks ago (1) Timing - duration: Weeks (1) Timing - details: Gradual onset, Still present (feeling worse last night/today.), Waxing and waning Quality / character: Other (feeling general weakness). No: Confused Associated symptoms: Fever, Urinary sx (urgency and frequency, feeling similar to prior UTIs.). No: Headache, Stiff neck, Dyspnea, Cough Contributing factors: Recent illness (malaise and feverish). No: New medication, Recent med change, Recent injury Basline status: Alert and oriented X 3, Walker Similar symptoms before: Diagnosis (she states she feels the current weakness feels like when she is ill, as opposed to left weakness and confusion when she had prior TIA in the past.) Recently seen: Clinic (seen in clinic at [facility] and referred to ER for further eval.), Other (had COVID first vaccine 3 1/2 weeks ago; was supposed to get 2nd shot 3 days ago but did not since felt ill.) Review of Systems Constitutional: reports: Fever, Myalgias, Fatigue Nose: denies: Rhinorrhea / runny nose, Congestion Throat: denies: Sore throat Respiratory: denies: Cough GI: reports: Nausea. denies: Abdominal Pain, Vomiting, Diarrhea : reports: Frequency, Hesitancy Neurologic: reports: Generalized weakness. 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 - Present Medications Home Medications: Ambulatory Orders Medication Instructions Recorded Confirmed Zolpidem [Ambien] 10 mg PO QPM 03/29/13 11/18/20 Aspirin [Aspir 81] 81 mg PO QPM 12/17/14 11/18/20 Cholecalciferol (Vitamin D3) 2,000 units PO DAILY 08/18/17 11/18/20 [Vitamin D3] Levothyroxine Sodium 88 mcg PO QDAC 08/18/17 11/18/20 lamoTRIgine [LaMICtal] 100 mg PO BID 08/18/17 11/18/20 Ondansetron Odt [Zofran] 4 mg TL Q6H PRN #15 tablet 11/18/20 cephALEXin [Keflex] 500 mg PO TID #20 cap 11/18/20 - Allergies Allergies/Adverse Reactions: Allergies Allergy/AdvReac Type Severity Reaction Status Date / Time propoxyphene napsylate * AdvReac vomit Verified 11/18/20 09:47 [From [facility]-N 100] - Social History Does the pt smoke?: No Smoking Status: Former smoker Does the pt drink ETOH?: No Does the pt have substance abuse?: No - Immunizations Immunizations are current?: Yes - POLST Patient has POLST: No PD ED PE NORMAL - Vitals Vital signs reviewed: Yes - General General: Alert and oriented X 3, No acute distress, Well developed/nourished - HEENT HEENT: Pharynx benign - Neck Neck: Supple, no meningeal sign, No adenopathy - Cardiac Cardiac: RRR, No murmur - Respiratory Respiratory: Clear bilaterally - Abdomen Abdomen: Normal bowel sounds, Soft, Non tender - Derm Derm: Normal color, Warm and dry - Extremities Extremities: No tenderness to palpate, Normal ROM s pain, No edema, No calf tenderness / cord - Neuro Neuro: Alert and oriented X 3, intelligence officer 2-12 intact, No motor deficit, No sensory deficit, Normal speech Eye Opening: Spontaneous Motor: Obeys Commands Verbal: Oriented GCS Score: 15 Results - Vitals Vitals: Vital Signs - 24 hr 11/18/20 11/18/20 11/18/20 09:35 10:00 10:30 Temperature 38.1 C H Heart Rate 92 89 80 Respiratory 18 30 H 27 H Rate Blood Pressure 109/75 135/119 H 105/64 O2 Saturation 95 93 92 11/18/20 11/18/20 11:00 11:55 Temperature Heart Rate 77 84 Respiratory 26 H 19 Rate Blood Pressure 106/68 132/77 H O2 Saturation 94 96 Oxygen O2 Source Room air - Labs Labs: Laboratory Tests 11/18/20 11/18/20 11/18/20 10:25 10:25 10:25 WBC 7.4 RBC 3.73 L Hgb 12.2 Hct 35.1 L MCV 94.1 MCH 32.7 H MCHC 34.8 RDW 12.8 Plt Count 143 MPV 8.9 Neut # (Auto) Not Reportable Lymph # (Auto) Not Reportable [place] # (Auto) Not Reportable Eos # (Auto) Not Reportable Baso # (Auto) Not Reportable Absolute Nucleated RBC Not Reportable Total Counted 100 Band Neuts % (Manual) 3 Reactive Lymphs % (Man) 30 Abnorm Lymph % (Manual) 0 Nucleated RBC % Not Reportable Neutrophils # (Manual) 3.0 Lymphocytes # (Manual) 3.7 H Monocytes # (Manual) 0.7 Eosinophils # (Manual) 0.0 Basophils # (Manual) 0.0 Differential Comment MANUAL DIFFERENTIAL Manual Slide Review Indicated WBC Morphology 3+ REACTIVE LYMPHS Sodium 139 Potassium 3.5 Chloride 105 Carbon Dioxide 24 Anion Gap 10.0 BUN 11 Creatinine 0.9 Estimated GFR (MDRD) 63 L Glucose 106 H Lactic Acid 1.0 Calcium 8.7 Total Bilirubin 1.3 H AST 38 ALT 40 Alkaline Phosphatase 106 Total Protein 7.0 Albumin 3.6 Globulin 3.4 Albumin/Globulin Ratio 1.1 Lipase 20 L Urine Color Urine Clarity Urine pH Ur Specific [place] Urine Protein Urine Glucose (UA) Urine Ketones Urine Occult Blood Urine Nitrite Urine Bilirubin Urine Urobilinogen Ur Leukocyte Esterase Urine RBC Urine WBC Ur Squamous Epith Cells Urine Bacteria Ur Microscopic Review Urine Culture Comments 11/18/20 11:15 WBC RBC Hgb Hct MCV MCH MCHC RDW Plt Count MPV Neut # (Auto) Lymph # (Auto) [place] # (Auto) Eos # (Auto) Baso # (Auto) Absolute Nucleated RBC Total Counted Band Neuts % (Manual) Reactive Lymphs % (Man) Abnorm Lymph % (Manual) Nucleated RBC % Neutrophils # (Manual) Lymphocytes # (Manual) Monocytes # (Manual) Eosinophils # (Manual) Basophils # (Manual) Differential Comment Manual Slide Review WBC Morphology Sodium Potassium Chloride Carbon Dioxide Anion Gap BUN Creatinine Estimated GFR (MDRD) Glucose Lactic Acid Calcium Total Bilirubin AST ALT Alkaline Phosphatase Total Protein Albumin Globulin Albumin/Globulin Ratio Lipase Urine Color YELLOW Urine Clarity SL. CLOUDY Urine pH 6.5 Ur Specific [place] 1.015 Urine Protein 100 H Urine Glucose (UA) NEGATIVE Urine Ketones TRACE Urine Occult Blood LARGE H Urine Nitrite POSITIVE H Urine Bilirubin NEGATIVE Urine Urobilinogen 0.2 (NORMAL) Ur Leukocyte Esterase LARGE H Urine RBC TNTC H Urine WBC >25 H Ur Squamous Epith Cells FEW Squamous Urine Bacteria Many H Ur Microscopic Review INDICATED Urine Culture Comments INDICATED PD MEDICAL DECISION MAKING - ED course Complexity details: reviewed results, re-evaluated patient, considered differential (seems general weakness, feverish, malaise with urinary symptoms. ), d/w patient Departure - Departure Disposition: 01 Home, Self Care Clinical Impression: Generalized weakness, Nausea UTI (urinary tract infection) Qualifiers: Urinary tract infection type: site unspecified Hematuria presence: without hematuria Qualified Code(s): N39.0 - Urinary tract infection, site not specified Condition: Stable Record reviewed to determine appropriate education?: Yes Instructions: ED UTI Cystitis Female Follow-Up: Selene Quiroz PA-C [Primary Care Provider] - Prescriptions: cephALEXin [Keflex] 500 mg PO TID #20 cap Ondansetron Odt [Zofran] 4 mg TL Q6H PRN #15 tablet PRN Reason: Nausea / Vomiting Comments: Stay well-hydrated. Normal diet. Ondansetron if needed for nausea. Tylenol if needed for pains. You do have signs of urinary tract infection on your urine test. Your other blood tests are pretty normal. Cephalexin antibiotic 3 times a day for a week for the infection. The urine culture should result in a couple of days and will call you if we need to modify the treatment based on that. Discharge Date/Time: 11/18/20 12:34
[2020-11-18] MEDS ORDERED: SODIUM CHLORIDE 0.9% 1,000 ML IV STA (10:11)
[2020-11-18] MEDS ORDERED: KETOROLAC 15 MG/ML VIAL IVP STA (10:14)
[2020-11-18 10:29] LABS: BASOPHILS % (AUTO) 0.9 %; EOSINOPHILS % (AUTO) 0.5 %; HCT - HEMATOCRIT 35.1 % (37.0-47.0); HGB - HEMOGLOBIN 12.2 g/dL (12.0-16.0); LYMPHOCYTES % (AUTO) 54.4 %; MEAN CORPUSCULAR HEMOGLOBIN 32.7 pg (27.0-31.0); MEAN CORPUSCULAR HGB CONC 34.8 g/dL (32.0-36.0); MEAN CORPUSCULAR VOLUME 94.1 fL (81.0-99.0); MEAN PLATELET VOLUME 8.9 fL (7.9-10.8); MONOCYTES % (AUTO) 7.6 %; NEUTROPHILS % (AUTO) 36.3 %; PLT - PLATELET COUNT 143 10^3/uL (130-450); RED BLOOD COUNT 3.73 10^6/uL (4.20-5.40); RED CELL DISTRIBUTION WIDTH 12.8 % (12.0-15.0); WHITE BLOOD COUNT 7.4 x10^3/uL (4.8-10.8)
[2020-11-18 10:33] LABS: SLIDE REVIEW? Indicated
[2020-11-18 10:45] LABS: ALBUMIN 3.6 g/dL (3.2-5.5); ALBUMIN/GLOBULIN RATIO 1.1 (1.0-2.2); BILIRUBIN,TOTAL 1.3 mg/dL (0.2-1.0); CALCIUM 8.7 mg/dL (8.5-10.3); CREATININE 0.9 mg/dL (0.4-1.0); POTASSIUM 3.5 mmol/L (3.5-5.0)
[2020-11-18 11:09] LABS: ABNORMAL LYMPHS % (MANUAL) 0 %
[2020-11-18 11:13] LABS: BAND NEUTROPHILS % (MANUAL) 3 %; DIFFERENTIAL COMMENT MANUAL DIFFERENTIAL; LYMPHOCYTES # (MANUAL) 3.7 10^3/uL (1.5-3.5); LYMPHOCYTES % (MANUAL) 20 %; MONOCYTES # (MANUAL) 0.7 10^3/uL (0.0-1.0); REACTIVE LYMPHS % (MANUAL) 30 %; WBC MORPHOLOGY (MULTIPLE) 3+ REACTIVE LYMPHS (NORMAL)
[2020-11-18 11:41] LABS: BILIRUBIN,URINE NEGATIVE (NEGATIVE); GLUCOSE, URINE (UA) NEGATIVE (NEGATIVE); KETONES,URINE (UA) TRACE mg/dL (NEGATIVE); LEUKOCYTE ESTERASE, URINE LARGE (NEGATIVE); NITRITE,URINE POSITIVE (NEGATIVE); OCCULT BLOOD,URINE LARGE (NEGATIVE); PH,URINE 6.5 PH (5.0-7.5); PROTEIN,URINE 100 mg/dL (NEGATIVE); UROBILINOGEN,URINE 0.2 (NORMAL) E.U./dL (NORMAL)
[2020-11-18 11:43] LABS: CLARITY,URINE SL. CLOUDY (CLEAR)
[2020-11-18] MEDS ORDERED: cefTRIAXone 1 GM VIAL IVP STA (11:45)
[2020-11-18 11:52] LABS: BACTERIA,URINE Many /HPF (None Seen); RBC,URINE TNTC /HPF (0-5); SQUAMOUS EPITHELIAL CELL,UR FEW Squamous (<= Few); WBC,URINE >25 /HPF (0-5)
[2020-11-18 11:56] VITALS: BP 132/77
== END 2020-11-18 12:34 | disposition home or self-care (01) ==
LOC: EDUNIT# → ED 09:35
DX: N39.0 Urinary tract infection, site not specified (principal); Z87.891 Personal history of nicotine dependence
CPT/HCPCS: 36415; 80053; 81001; 81003; 83605; 83690; 85025; 87077; 87086; 87181; 93005; 96374; 96375; 99284

== ENCOUNTER 2021-03-28 07:54 | Day surgery (SDC) | payer MEDICARE, OTHER ==
[2021-03-28] MEDS ORDERED: LACTATED RINGERS 1,000 ML IV ONE ×2 (08:33→09:57)
[2021-03-28] MEDS ORDERED: MIDAZOLAM 2 MG/2 ML VIAL ONE ×2 (09:28→09:44)
[2021-03-28] MEDS ORDERED: fentaNYL 250 MCG/5 ML VIAL ONE (09:28)
[2021-03-28 10:51] VITALS: BP 120/82
== END 2021-03-28 07:55 | disposition home or self-care (01) ==
LOC: SDS 07:54
PROVIDERS: ATTEND Surgery
PROC: 0DBN8ZZ Excision of Sigmoid Colon, Via Natural or Artificial Opening Endoscopic (ICD-10-PCS; principal; 2021-03-28 09:15)
DX: Z12.11 Encounter for screening for malignant neoplasm of colon (principal); K63.5 Polyp of colon; K64.8 Other hemorrhoids; K64.4 Residual hemorrhoidal skin tags
CPT/HCPCS: 45380; J3010; J7120

== ENCOUNTER 2021-03-30 15:48 | Outpatient (CLI) | payer MEDICARE, OTHER ==
[2021-03-30 18:13] LABS: BASOPHILS # (AUTO) 0.1 10^3/uL (0.0-0.1); BASOPHILS % (AUTO) 0.9 %; EOSINOPHILS # (AUTO) 0.2 10^3/uL (0.0-0.7); HCT - HEMATOCRIT 39.3 % (37.0-47.0); HGB - HEMOGLOBIN 13.4 g/dL (12.0-16.0); LYMPHOCYTES # (AUTO) 2.8 10^3/uL (1.5-3.5); LYMPHOCYTES % (AUTO) 36.8 %; MEAN CORPUSCULAR HEMOGLOBIN 33.4 pg (27.0-31.0); MEAN CORPUSCULAR HGB CONC 34.1 g/dL (32.0-36.0); MEAN PLATELET VOLUME 9.1 fL (7.9-10.8); MONOCYTES # (AUTO) 0.6 10^3/uL (0.0-1.0); MONOCYTES % (AUTO) 8.4 %; NEUTROPHILS # (AUTO) 3.9 10^3/uL (1.5-6.6); NEUTROPHILS % (AUTO) 51.8 %; PLT - PLATELET COUNT 295 10^3/uL (130-450); RED BLOOD COUNT 4.01 10^6/uL (4.20-5.40); RED CELL DISTRIBUTION WIDTH 12.2 % (12.0-15.0); WHITE BLOOD COUNT 7.5 x10^3/uL (4.8-10.8)
[2021-03-30 18:40] LABS: ALBUMIN 4.5 g/dL (3.2-5.5); ALBUMIN/GLOBULIN RATIO 1.3 (1.0-2.2); ALKALINE PHOSPHATASE 74 IU/L (42-121); ALT ALANINE AMINOTRANSFERASE 18 IU/L (10-60); AST ASPARTATE AMINOTRANSFERASE 19 IU/L (10-42); BILIRUBIN,TOTAL 0.8 mg/dL (0.2-1.0); BUN - BLOOD UREA NITROGEN 16 mg/dL (6-20); CALCIUM 10.1 mg/dL (8.5-10.3); CARBON DIOXIDE - CO2 28 mmol/L (21-32); CHLORIDE 106 mmol/L (101-111); CHOL/HDL RATIO 3.9 (<4.4); CHOLESTEROL 248 mg/dL; CREATININE 0.9 mg/dL (0.4-1.0); GFR - MDRD 63 (>89); GLUCOSE 119 mg/dL (70-100); HDL CHOLESTEROL 64 mg/dL; LDL CHOLESTEROL,CALCULATED 151 mg/dL; LDL/HDL RATIO 2.4 (<4.4); POTASSIUM 3.9 mmol/L (3.5-5.0); SODIUM 142 mmol/L (135-145); TRIGLYCERIDES 164 mg/dL; VLDL CHOLESTEROL 33 mg/dL
[2021-03-30 18:45] LABS: THYROID STIMULATING HORMONE 1.39 uIU/mL (0.34-5.60)
== END 2021-03-30 23:59 | disposition home or self-care (01) ==
LOC: LAB.WCP 15:48
PROVIDERS: ATTEND Physician Assistant Medical
DX: E78.5 Hyperlipidemia, unspecified (principal); K21.9 Gastro-esophageal reflux disease without esophagitis; E03.9 Hypothyroidism, unspecified
CPT/HCPCS: 36415; 80053; 80061; 83721; 84443; 85025

== ENCOUNTER 2021-10-25 10:03 | Outpatient (CLI) | payer MEDICARE, OTHER ==
[2021-10-25 12:12] LABS: BASOPHILS # (AUTO) 0.1 10^3/uL (0.0-0.1); BASOPHILS % (AUTO) 1.1 %; EOSINOPHILS # (AUTO) 0.2 10^3/uL (0.0-0.7); EOSINOPHILS % (AUTO) 2.1 %; HCT - HEMATOCRIT 40.4 % (37.0-47.0); HGB - HEMOGLOBIN 14.1 g/dL (12.0-16.0); LYMPHOCYTES # (AUTO) 2.1 10^3/uL (1.5-3.5); LYMPHOCYTES % (AUTO) 28.4 %; MEAN CORPUSCULAR HGB CONC 34.9 g/dL (32.0-36.0); MEAN CORPUSCULAR VOLUME 94.6 fL (81.0-99.0); MEAN PLATELET VOLUME 8.8 fL (7.9-10.8); MONOCYTES # (AUTO) 0.4 10^3/uL (0.0-1.0); MONOCYTES % (AUTO) 5.7 %; NEUTROPHILS # (AUTO) 4.7 10^3/uL (1.5-6.6); NEUTROPHILS % (AUTO) 62.6 %; PLT - PLATELET COUNT 267 10^3/uL (130-450); RED BLOOD COUNT 4.27 10^6/uL (4.20-5.40); WHITE BLOOD COUNT 7.5 x10^3/uL (4.8-10.8)
[2021-10-25 12:48] LABS: ALBUMIN 4.3 g/dL (3.2-5.5); ALBUMIN/GLOBULIN RATIO 1.2 (1.0-2.2); ALKALINE PHOSPHATASE 82 IU/L (42-121); ALT ALANINE AMINOTRANSFERASE 15 IU/L (10-60); AST ASPARTATE AMINOTRANSFERASE 16 IU/L (10-42); BILIRUBIN,TOTAL 0.9 mg/dL (0.2-1.0); BUN - BLOOD UREA NITROGEN 13 mg/dL (6-20); CALCIUM 9.8 mg/dL (8.5-10.3); CARBON DIOXIDE - CO2 30 mmol/L (21-32); CHLORIDE 103 mmol/L (101-111); CHOL/HDL RATIO 3.8 (<4.4); CHOLESTEROL 244 mg/dL; CREATININE 1.1 mg/dL (0.4-1.0); GFR - MDRD 50 (>89); GLUCOSE 109 mg/dL (70-100); HDL CHOLESTEROL 65 mg/dL; LDL CHOLESTEROL,CALCULATED 152 mg/dL; LDL/HDL RATIO 2.3 (<4.4); POTASSIUM 4.3 mmol/L (3.5-5.0); SODIUM 140 mmol/L (135-145); TOTAL PROTEIN 7.9 g/dL (6.7-8.2); TRIGLYCERIDES 135 mg/dL; VLDL CHOLESTEROL 27 mg/dL
[2021-10-25 12:54] LABS: THYROID STIMULATING HORMONE 9.72 uIU/mL (0.34-5.60)
[2021-10-25 13:40] LABS: FREE T4 (FREE THYROXINE) 0.98 ng/dL (0.58-1.64)
== END 2021-10-25 10:04 | disposition home or self-care (01) ==
LOC: LAB.N 10:03
PROVIDERS: ATTEND Physician Assistant Medical
DX: R73.9 Hyperglycemia, unspecified (principal); E78.5 Hyperlipidemia, unspecified; G40.909 Epilepsy, unspecified, not intractable, without status epilepticus; E03.9 Hypothyroidism, unspecified; K21.9 Gastro-esophageal reflux disease without esophagitis
CPT/HCPCS: 36415; 80053; 80061; 80175; 81599; 83036; 83721; 84439; 84443; 85025

== ENCOUNTER 2022-01-08 18:45 | Outpatient (CLI) | payer MEDICARE, OTHER | END 2022-01-08 18:46 | disposition left against medical advice (07) | LOC: EMS 18:45 | DX: R11.2 Nausea with vomiting, unspecified (principal); R53.1 Weakness ==

== ENCOUNTER 2022-01-08 19:34 | Emergency (ER) | payer MEDICARE, OTHER ==
[2022-01-08] MEDS ORDERED: ONDANSETRON 4 MG/2 ML VIAL IVP STA (20:00)
[2022-01-08] MEDS ORDERED: SODIUM CHLORIDE 0.9% 1,000 ML IV STA (20:00)
[2022-01-08 20:26] LABS: BASOPHILS % (AUTO) 0.2 %; HCT - HEMATOCRIT 43.8 % (37.0-47.0); HGB - HEMOGLOBIN 15.5 g/dL (12.0-16.0); LYMPHOCYTES # (AUTO) 1.5 10^3/uL (1.5-3.5); LYMPHOCYTES % (AUTO) 11.2 %; MEAN CORPUSCULAR HEMOGLOBIN 32.8 pg (27.0-31.0); MEAN CORPUSCULAR HGB CONC 35.4 g/dL (32.0-36.0); MEAN CORPUSCULAR VOLUME 92.6 fL (81.0-99.0); MEAN PLATELET VOLUME 8.7 fL (7.9-10.8); MONOCYTES # (AUTO) 0.3 10^3/uL (0.0-1.0); MONOCYTES % (AUTO) 1.9 %; NEUTROPHILS # (AUTO) 11.3 10^3/uL (1.5-6.6); NEUTROPHILS % (AUTO) 86.3 %; PLT - PLATELET COUNT 287 10^3/uL (130-450); RED BLOOD COUNT 4.73 10^6/uL (4.20-5.40); RED CELL DISTRIBUTION WIDTH 11.9 % (12.0-15.0); WHITE BLOOD COUNT 13.1 x10^3/uL (4.8-10.8)
[2022-01-08 20:38] LABS: ALBUMIN 4.8 g/dL (3.2-5.5); ALBUMIN/GLOBULIN RATIO 1.1 (1.0-2.2); BILIRUBIN,TOTAL 1.3 mg/dL (0.2-1.0); CALCIUM 10.3 mg/dL (8.5-10.3); CREATININE 0.9 mg/dL (0.4-1.0); MAGNESIUM 2.2 mg/dL (1.7-2.8); POTASSIUM 4.1 mmol/L (3.5-5.0)
[2022-01-08] MEDS ORDERED: ONDANSETRON ODT 4 MG Prepack 2 TL PRN (21:31)
--- NOTE | 2022-01-08 21:34 | ED Physician Documentation ---
History of Present Illness - Stated complaint Stated Complaint: VOMITTING,WEAK,FATIGUE - Chief complaint Chief Complaint: General - History obtained from History obtained from: Patient - Additonal information Additional information: Patient is a 61-year-old female presenting for evaluation of nausea and vomiting starting this morning and feeling of generalized weakness. Patient reports having several episodes of vomiting today consisting of food and bile. She denies blood in her emesis. She denies abdominal pain. She has not been able to tolerate any p.o. intake.She did try Pedialyte earlier but also vomited this up. She denies known sick contacts. Family at the bedside is eating the same food and is not ill. She denies headache, focal weakness, chest pain or difficulty breathing, abdominal pain, back pain, dysuria or frequency. Review of Systems Constitutional: denies: Fever Nose: denies: Congestion Cardiac: denies: Chest pain / pressure Respiratory: denies: Dyspnea, Cough GI: reports: Nausea, Vomiting. denies: Abdominal Pain, Diarrhea : denies: Dysuria Skin: denies: Rash Musculoskeletal: denies: Back pain Neurologic: reports: Generalized weakness. 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 ERP: Hysterectomy - Present Medications Home Medications: Ambulatory Orders Medication Instructions Recorded Confirmed Zolpidem [Ambien] 10 mg PO QPM 03/29/13 03/27/21 Cholecalciferol (Vitamin D3) 2,000 units PO DAILY 08/18/17 03/27/21 [Vitamin D3] Levothyroxine Sodium 88 mcg PO QDAC 08/18/17 03/27/21 lamoTRIgine [LaMICtal] 100 mg PO BID 08/18/17 03/27/21 Ondansetron Odt [Zofran] 4 mg TL Q6H PRN #15 tablet 11/18/20 03/27/21 Gabapentin [Neurontin] 600 mg PO DAILY 03/28/21 03/28/21 Ondansetron Odt [Zofran] 4 mg TL Q6H PRN #10 tablet 01/08/22 - Allergies Allergies/Adverse Reactions: Allergies Allergy/AdvReac Type Severity Reaction Status Date / Time propoxyphene napsylate * AdvReac vomit Verified 01/08/22 20:27 [From [facility]-N 100] - Social History Does the pt smoke?: No Smoking Status: Never smoker Does the pt drink ETOH?: No Does the pt have substance abuse?: No - Immunizations Immunizations are current?: Yes - POLST Patient has POLST: No PD ED PE NORMAL - General General: Alert and oriented X 3, No acute distress, Well developed/nourished - HEENT HEENT: Atraumatic, Pharynx benign. 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, No motor deficit, No sensory deficit, Normal speech - Psych Psych: Normal mood Results - Vitals Vitals: Vital Signs - 24 hr 01/08/22 01/08/22 19:40 22:56 Temperature 36.6 C 37.0 C Heart Rate 68 98 Respiratory 18 16 Rate Blood Pressure 131/83 H 128/86 H O2 Saturation 99 98 Oxygen O2 Source Room air - EKG (time done) 2033 Rate: Rate (enter#) (99) Rhythm: NSR Intervals: RBBB Ischemia: Non specific changes (T wave flattening in lateral leads) - Labs Labs: Laboratory Tests 01/08/22 01/08/22 20:18 20:18 WBC 13.1 H RBC 4.73 Hgb 15.5 Hct 43.8 MCV 92.6 MCH 32.8 H MCHC 35.4 RDW 11.9 L Plt Count 287 MPV 8.7 Neut # (Auto) 11.3 H Lymph # (Auto) 1.5 [place] # (Auto) 0.3 Eos # (Auto) 0.0 Baso # (Auto) 0.0 Absolute Nucleated RBC 0.00 Nucleated RBC % 0.0 Sodium 139 Potassium 4.1 Chloride 101 Carbon Dioxide 24 Anion Gap 14.0 H BUN 15 Creatinine 0.9 Estimated GFR (MDRD) 63 L Glucose 164 H Calcium 10.3 Magnesium 2.2 Total Bilirubin 1.3 H AST 26 ALT 20 Alkaline Phosphatase 91 Total Protein 9.0 H Albumin 4.8 Globulin 4.2 Albumin/Globulin Ratio 1.1 PD MEDICAL DECISION MAKING - ED course Complexity details: reviewed results, re-evaluated patient, d/w patient, d/w family ED course: Patient presenting for feelings of generalized weakness along with nausea and vomiting. Vital signs appear stable. Abdominal exam is benign. Patient denies headache and has no focal deficits noted on exam. Labs were reviewed. Patient is feeling better after IV fluids and Zofran and able to tolerate p.o. without any emesis. Repeat abdominal exam is benign and patient was able to get up to go to the bathroom. At this time, I do not feel she needs further testing or imaging and she is comfortable with plan for discharge. She and family at bedside are aware of return precautions. Departure - Departure Disposition: 01 Home, Self Care Clinical Impression: Nausea & vomiting Qualifiers: Vomiting type: unspecified Qualified Code(s): R11.2 - Nausea with vomiting, unspecified Condition: Stable Instructions: ED Nausea Vomiting Prescriptions: Ondansetron Odt [Zofran] 4 mg TL Q6H PRN #10 tablet PRN Reason: Nausea / Vomiting Comments: You were evaluated for nausea and vomiting. Your vital signs appeared stable. Your electrolytes were checked and are normal. Your abdominal Exam did not elicit any tenderness. You were given hydration with IV fluids and also medicine to help with the nausea and vomiting. If you are able to keep water down which is a good sign. At this time I feel it is okay to send you home with Medication to continue to help with nausea. Please continue to hydrate yourself with With fluids. If tomorrow you are still tolerating fluids well then you can continue to advance your diet but I would be cautious and stick with a bland diet. If you have any worsening symptoms or develop new symptoms such as pain or headache then please return to the emergency department. I have sent your prescription for Zofran to [facility] in [place]. Discharge Date/Time: 01/08/22 22:45
[2022-01-08 22:58] VITALS: BP 128/86
== END 2022-01-08 22:45 | disposition home or self-care (01) ==
LOC: ED 19:34
DX: R53.1 Weakness (principal); R11.2 Nausea with vomiting, unspecified
CPT/HCPCS: 36415; 80053; 83735; 85025; 93005; 96374; 99283

== ENCOUNTER 2022-01-25 03:45 | Outpatient (CLI) | payer MEDICARE, OTHER ==
[2022-01-25 17:46] LABS: BASOPHILS # (AUTO) 0.1 10^3/uL (0.0-0.1); BASOPHILS % (AUTO) 0.9 %; EOSINOPHILS # (AUTO) 0.2 10^3/uL (0.0-0.7); EOSINOPHILS % (AUTO) 2.4 %; HGB - HEMOGLOBIN 13.8 g/dL (12.0-16.0); LYMPHOCYTES # (AUTO) 3.6 10^3/uL (1.5-3.5); LYMPHOCYTES % (AUTO) 40.1 %; MEAN CORPUSCULAR HEMOGLOBIN 32.4 pg (27.0-31.0); MEAN CORPUSCULAR HGB CONC 34.5 g/dL (32.0-36.0); MEAN CORPUSCULAR VOLUME 93.9 fL (81.0-99.0); MEAN PLATELET VOLUME 9.1 fL (7.9-10.8); MONOCYTES # (AUTO) 0.7 10^3/uL (0.0-1.0); MONOCYTES % (AUTO) 7.8 %; NEUTROPHILS # (AUTO) 4.3 10^3/uL (1.5-6.6); NEUTROPHILS % (AUTO) 48.7 %; PLT - PLATELET COUNT 285 10^3/uL (130-450); RED BLOOD COUNT 4.26 10^6/uL (4.20-5.40); RED CELL DISTRIBUTION WIDTH 12.4 % (12.0-15.0); WHITE BLOOD COUNT 8.9 x10^3/uL (4.8-10.8)
== END 2022-01-25 03:46 | disposition home or self-care (01) ==
LOC: LAB.N 03:45
PROVIDERS: ATTEND Physician Assistant Medical
DX: R11.2 Nausea with vomiting, unspecified (principal)
CPT/HCPCS: 36415; 85025

== ENCOUNTER 2022-08-20 13:58 | Outpatient (CLI) | payer MEDICARE, OTHER ==
[2022-08-20 18:39] LABS: THYROID STIMULATING HORMONE 5.31 uIU/mL (0.34-5.60)
== END 2022-08-20 13:59 | disposition home or self-care (01) ==
LOC: LAB.N 13:58
PROVIDERS: ATTEND Physician Assistant Medical
DX: E03.9 Hypothyroidism, unspecified (principal)
CPT/HCPCS: 36415; 84443

== ENCOUNTER 2022-08-24 10:12 | Outpatient (CLI) | payer MEDICARE, OTHER ==
--- NOTE | 2022-08-24 15:34 | XRAY Report ---
PROCEDURE: Hips 2V BILAT INDICATIONS: HIP PAIN, LEFT TECHNIQUE: 3 views of the hip were acquired. COMPARISON: None FINDINGS: Bones: No fractures or dislocations. Mild to moderate bilateral hip joint osteophytic changes are se en. No evidence of avascular necrosis of femoral head. Post fusion changes are seen in lower lumbar s pine at L4-5 level. No gross hardware loosening or failure. No suspicious bony lesions. The visualiz ed pelvic ring appears intact. Soft tissues: No suspicious soft tissue calcifications or masses. IMPRESSION: 1. Symmetric appearing moderate bilateral hip joint osseous arthritis. No hip fracture or dislocation . No evidence of avascular necrosis. Reviewed by: Nico Saravia MD on 08/24/2022 3:33 PM PST Approved by: Nico Saravia MD on 08/24/2022 3:33 PM PST Station ID: [id number]
== END 2022-08-24 10:13 | disposition home or self-care (01) ==
LOC: DI 10:12
PROVIDERS: ATTEND Physician Assistant Medical
DX: M16.0 Bilateral primary osteoarthritis of hip (principal)

== ENCOUNTER 2022-11-15 11:25 | Outpatient (CLI) | payer MEDICARE, OTHER ==
[2022-11-15 18:04] LABS: THYROID STIMULATING HORMONE 1.66 uIU/mL (0.34-5.60)
== END 2022-11-15 11:26 | disposition home or self-care (01) ==
LOC: LAB.N 11:25
PROVIDERS: ATTEND Physician Assistant Medical
DX: E03.9 Hypothyroidism, unspecified (principal)
CPT/HCPCS: 36415; 84443

== ENCOUNTER 2023-01-16 11:00 | Outpatient (CLI) | payer MEDICARE, OTHER ==
--- NOTE | 2023-01-17 12:08 | Mammography Report ---
BILATERAL DIGITAL SCREENING MAMMOGRAM 3D/2D: 01/16/2023 CLINICAL: Routine screening. Comparison is made to exams dated: 01/25/2022 mammogram, 03/20/2016 mammogram, 11/22/2014 mammogram, 11/13 mammogram, and 08/13/2012 mammogram - [facility]. There are scattered areas of fibroglandular density in both breasts (category b / 25%-50% glandular t issue). No significant masses, calcifications, or other findings are seen in either breast. There has been no significant interval change. IMPRESSION: NEGATIVE There is no mammographic evidence of malignancy. A 1 year screening mammogram is recommended. Based on the Tyrer Cuzick model (a risk assessment model) the patients lifetime risk is 6.0% and her 10 year risk is 2.8%. According to the ACR, ACS, and NCCN guidelines, an annual breast MRI exam tre g with mammogram is recommended if the patients lifetime risk is 20% or greater. This exam was interpreted at Station ID: [id number]. NOTE: For mammograms, a report in lay terms will be sent to the patient. Approximately 15% of breast malignancies will not be visualized mammographically. In the management of a palpable breast mass, a negative mammogram must not discourage biopsy of a clinically suspicious lesion. Electronically Signed By: Samuel claire/adam:01/16/2023 12:00:21 letter sent: No_Letter ACR BI-RADS Category 1: Negative 3341F PARENCHYMAL PATTERN: (A) - The breast(s) demonstrate(s) scattered fibroglandular densities. BI-RADS CATEGORY: (1) - 1 Mammogram [id number] 1 year screening LATERALITY: (B)
== END 2023-01-16 11:01 | disposition home or self-care (01) ==
LOC: DI.N 11:00
DX: Z12.31 Encounter for screening mammogram for malignant neoplasm of breast (principal)

== ENCOUNTER 2024-12-27 13:47 | Observation (INO) ==
--- OUTSIDE RECORDS SUMMARY | 2024-12-27 13:55 | EXTERNAL MEDICAL SUMMARY RPT | Continuity of Care Document ---
Author Organization [facility] Address [address] [place] [id number] Phone Problems date description facility 2024-11-27 12:17 Hypothyroidism, unspecified [facility] 2024-11-27 12:17 Type 2 diabetes mellitus withou t complications [facility] 2024-11-27 12:17 Hyperlipidemia, unspecified [facility] 2024-11-27 12:17 Hyperglycemia, unspecified [facility] 2024-11-28 00:03 Hypothyroidism, unspecified [facility] 2024-11-28 00:03 Type 2 diabetes mellitus withou t complications [facility] 2024-11-28 00:03 Hyperlipidemia, unspecified [facility] 2024-11-28 00:03 Hyperglycemia, unspecified [facility] 2024-11-30 12:18 Hyperlipidemia, unspecified [facility] 2024-12-01 14:17 Hypothyroidism, unspecified [facility] 2024-12-01 14:17 Asymptomatic menopausal state [facility] 2024-12-02 09:55 Asymptomatic menopausal state [facility] 2024-12-14 15:09 Asymptomatic menopausal state [facility] 2024-12-14 15:14 Asymptomatic menopausal state [facility] 2024-12-16 14:08 Asymptomatic menopausal state [facility] 2024-12-17 00:01 Asymptomatic menopausal state [facility] 2024-12-26 18:25 Acute cystitis without hematuri a [facility] Results/Labs test date facility value unit notes Result panel 1 FREE T4 (FREE THYROXINE) 2024-11-27 12:30 [facility] 0.71 ng/dl Biotin at >10 ng/mL concentration may cause significant interference. BILIRUBIN,TOTAL 2024-11-27 12:30 [facility] 0.8 mg/dl As of January 2023 testing method has changed, this may include reference ranges. CREATININE 2024-11-27 12:30 [facility] 0.9 mg/dl As of January 2023 testing method has changed, this may include reference ranges. LDL/HDL RATIO 2024-11-27 12:30 [facility] 1.2 (missing) (missing) ALBUMIN/GLOBULIN RATIO 2024-11-27 12:30 [facility] 1.3 (missing) (missing) GLUCOSE 2024-11-27 12:30 [facility] 101 mg/dl As of January 2023 testing method has changed, this may include reference ranges. ESTIMATED AVERAGE GLUCOSE 2024-11-27 12:30 [facility] 105 mg/dl (missing) CHLORIDE 2024-11-27 12:30 [facility] 105 mmol/l As of January 2023 testing method has changed, this may include reference ranges. AST ASPARTATE AMINOTRANSFERASE 2024-11-27 12:30 [facility] 12 iu/l As of January 2023 testing method has changed, this may include reference ranges. TRIGLYCERIDES 2024-11-27 12:30 [facility] 133 mg/dl Social History date description facility
[2024-12-27 14:20] LABS: BASOPHILS # (AUTO) 0.1 10^3/uL (0.0-0.1); BASOPHILS % (AUTO) 0.8 %; EOSINOPHILS # (AUTO) 0.4 10^3/uL (0.0-0.7); EOSINOPHILS % (AUTO) 3.9 %; HCT - HEMATOCRIT 40.2 % (37.0-47.0); HGB - HEMOGLOBIN 13.1 g/dL (12.0-16.0); LYMPHOCYTES # (AUTO) 2.9 10^3/uL (1.5-3.5); LYMPHOCYTES % (AUTO) 29.2 %; MEAN CORPUSCULAR HEMOGLOBIN 32.8 pg (27.0-31.0); MEAN CORPUSCULAR HGB CONC 32.6 g/dL (32.0-36.0); MEAN CORPUSCULAR VOLUME 100.5 fL (81.0-99.0); MEAN PLATELET VOLUME 9.1 fL (7.9-10.8); MONOCYTES # (AUTO) 0.7 10^3/uL (0.0-1.0); MONOCYTES % (AUTO) 7.3 %; NEUTROPHILS # (AUTO) 5.9 10^3/uL (1.5-6.6); NEUTROPHILS % (AUTO) 58.6 %; PLT - PLATELET COUNT 306 10^3/uL (130-450); RED CELL DISTRIBUTION WIDTH 11.7 % (12.0-15.0)
--- NOTE | 2024-12-27 14:29 | ED Physician Documentation ---
History of Present Illness Stated complaint Stated Complaint: CONFUSION,NO SPEECH Chief complaint Chief Complaint: Neuro History obtained from History obtained from: Patient and Family History of Present Illness Pain level max: 0 Pain level now: 0 Additonal information Additional information: Patient is a 64-year-old female with a history of CADASIL. She was seen here yesterday and had a normal head CT and CT angiogram. Her symptoms were similar with aphasia, staring into space and generalized weakness. Neurology was consulted and did not feel that this was a stroke, especially given bilateral symptoms. Patient symptoms had fully resolved. Family wanted to take her home after receiving Rocephin here. They did not hot die picker her antibiotics yet today. Symptoms recurred about 2 hours ago today. Nothing makes it better or worse. No vomiting. No diarrhea. No blood in the stool. She is wheelchair-bound at baseline. Brendan Coma Scale Assess Eye opening: Spontaneous Verbal response: None Motor response: Obeys Commands Total score: 11 Review of Systems Constitutional Denies: Fever or Chills Ears, nose, mouth, and throat Denies: Neck pain Cardiovascular Denies: chest pain Respiratory Denies: Cough or Wheezing Gastrointestinal Denies: Nausea or Vomiting Musculoskeletal Denies: Back pain, Neck pain or Gout Integumentary/Breast Denies: Rash Allergic/Immunologic Denies: Wheezing Meds/Allgy Home Medications Ambulatory Orders Medication Instructions Recorded Confirmed ondansetron 4 mg disintegrating 4 mg translingual Q6H PRN Nausea / 11/18/20 12/27/24 tablet Vomiting #15 tabs Handicap Placard 05/19/24 12/26/24 lamotrigine 100 mg tablet 100 mg PO BID 06/09/2412/27 levothyroxine 88 mcg tablet 88 mcg PO QDAC #100 tabs 1 08/09/23 12/27/24 trazodone 50 mg tablet 50 mg PO HS PRN insomnia 12/27/24 omeprazole 20 mg capsule,delayed 20 mg PO QDAY #90 cap s 09/03/24 12/27/24 release rosuvastatin 10 mg tablet 10 mg PO QDAY #90 tabs 11/0612/27/24 cefpodoxime 100 mg tablet 100 mg PO BID 7 days #14 tab s 12/26/24 Allergies Allergies Allergy/AdvReac Type Severity Reaction Status Date / Time propoxyphene napsylate * AdvReac vomit Verified 12/27/24 16:55 (From Darvocet-N 100) PFS Active Problems All Active Problems (Updated 12/27/24 @ 17:02 by Shin Morris MD) Complicated UTI (urinary tract infection) (Acute) CADASIL (Acute) Encephalopathy, metabolic (Acute) UTI (urinary tract infection) (Acute) Vitamin D deficiency (Acute) Right thyroid nodule (Acute) Hypothyroidism (Acute) Colon cancer screening (Acute) OP (osteoporosis) (Acute) Cerebral autosomal dominant arteriopathy with subcortical infarcts and leukoencephalopathy (Acute) Hyperglycemia (Acute) Allergic rhinitis (Acute) Nausea with vomiting, unspecified (Acute) Pain in left hip (Acute) Fatigue (Acute) Chronic diarrhea (Acute) Constipation (Acute) Incomplete bladder emptying (Acute) Neurogenic bladder (Acute) Asymptomatic bacteriuria (Acute) Cerebrovascular accident (CVA) (Acute) Hyperlipidemia (Acute) Medical History Medical History (Updated 12/27/24 @ 17:02 by Shin Morris MD) GERD (gastroesophageal reflux disease) HLD (hyperlipidemia) Social History Social History (Updated 12/27/24 @ 14:07 by Kathleen Garcia RN) Smoking Status: Never smoker If you are a former smoker, when did you quit? (Date/Year): 1981 Number of Years Smoked: 5 Do you dip or chew tobacco?: No Do you vape?: No Patient requests smoking cessation consult: No Initiate information on smoking cessation: No Living arrangement: At home Marital Status: Living Condition: With spouse/s.o. Support Person: Yes Relationship: Level: Assisted Home Mobility Equipment: Wheelchair Do you feel safe in your home environment?: Yes Suffered physical, verbal, emotional, or financial abuse?: No History of Abuse: No ETOH Use: None POLST Patient has POLST: No Exam Exam Vital Signs: Vital Signs x48h Temp Pulse Resp BP Pulse Ox O2 Flow Rate 12/27/24 15:06 77 18 119/74 93 2 12/27/24 14:09 2 12/27/24 13:55 36.8 C 80 18 131/79 H 92 Constitutional normal general appearance and no apparent distress HENMT oropharynx normal Eyes PERRL Neck/C-Spine trachea midline Respiratory breath sounds equal bilaterally and normal respiratory effort Cardiovascular normal heart rate noted and regular rhythm noted Gastrointestinal abdomen soft to palpation, nontender to palpation and nondistended Extremities no deformity Neurology GCS calculation - Eye opening: Spontaneous Verbal response: None Motor response: Obeys Commands Brendan Coma Scale total score: 11 responds to verbal and squeezes both hands Psychiatry staring into space, mouth open, Skin skin color normal Results Vitals Vitals: Vital Signs - 24 hr 12/27/24 13:55 12/27/24 14:08 12/27/24 14:09 Temperature 36.8 C Temperature Source Tympanic Pulse Rate 80 Respiratory Rate 18 Blood Pressure 131/79 H O2 Saturation 92 Oxygen Delivery Method Nasal Cannula Nasal Cannula O2 Source Room air Oxygen Flow Rate 2 If not protocol: Oxygen Flow, liters/minute 2 Pain Intensity 0 12/27/24 15:06 Temperature Temperature Source Pulse Rate 77 Respiratory Rate 18 Blood Pressure 119/74 O2 Saturation 93 Oxygen Delivery Method O2 Source Nasal cannula Oxygen Flow Rate If not protocol: Oxygen Flow, liters/minute 2 Pain Intensity Oxygen O2 Source Nasal cannula Oxygen Flow Rate 2 Labs Labs: Laboratory Tests 12/27/24 12/27/24 14:00 14:43 WBC 10.0 RBC 4.00 L Hgb 13.1 Hct 40.2 MCV 100.5 H MCH 32.8 H MCHC 32.6 RDW 11.7 L Plt Count 306 MPV 9.1 Neut # (Auto) 5.9 Lymph # (Auto) 2.9 [place] # (Auto) 0.7 Eos # (Auto) 0.4 Baso # (Auto) 0.1 Absolute Nucleated RBC 0.00 Nucleated RBC % 0.0 PT 13.3 H INR 1.2 APTT 24.4 L Sodium 142 Potassium 4.1 Chloride 106 Carbon Dioxide 29 Anion Gap 7.0 BUN 14 Creatinine 1.1 Estimated GFR (MDRD) 50 L Glucose 104 Lactic Acid 1.0 Calcium 10.0 Total Bilirubin 0.7 AST 11 ALT 8 L Alkaline Phosphatase 84 Total Protein 7.6 Albumin 4.4 Globulin 3.2 Albumin/Globulin Ratio 1.4 Lipase < 10 L Rads (name of study) head ct: Relevant Findings:: Final report received PD Medical Decision Making ED course Complexity details: reviewed results, re-evaluated patient, considered differential, d/w patient and d/w family ED course: 64-year-old female with what appears to be a metabolic encephalopathy. Head CT repeated today and does not show any acute abnormalities. Blood cultures were drawn yesterday, these were repeated today as well. Given the recurrence of symptoms, will admit for further care, IV antibiotics, IV fluids. Consideration of MRI tomorrow. Discussed the case with Dr. Morris, hospitalist who accepts. Given IV Rocephin and IV fluids here. No focal neurological deficits, appears to be a generalized encephalopathy This document was made in part using voice recognition software. While efforts are made to proofread this document, sound alike and grammatical errors may occur. Discharge Plan Discharge Patient Disposition: 64 [facility] DC/Xfer Clinical Impression: Encephalopathy, metabolic UTI (urinary tract infection) Qualifiers: Urinary tract infection type: acute cystitis Hematuria presence: without hematuria Qualified Code(s): N30.00 - Acute cystitis without hematuria Interventions: ED Admission Assessment Last Done: 12/27/24 15:34
[2024-12-27 14:34] LABS: ALBUMIN 4.4 g/dL (3.2-5.5); ALBUMIN/GLOBULIN RATIO 1.4 (1.0-2.2); ALKALINE PHOSPHATASE 84 IU/L (42-121); ALT ALANINE AMINOTRANSFERASE 8 IU/L (10-60); AST ASPARTATE AMINOTRANSFERASE 11 IU/L (10-42); BILIRUBIN,TOTAL 0.7 mg/dL (0.2-1.0); BUN - BLOOD UREA NITROGEN 14 mg/dL (6-20); CARBON DIOXIDE - CO2 29 mmol/L (21-32); CHLORIDE 106 mmol/L (101-111); CREATININE 1.1 mg/dL (0.6-1.3); GFR - MDRD 50 (>89); GLUCOSE 104 mg/dL (74-104); POTASSIUM 4.1 mmol/L (3.5-4.5); SODIUM 142 mmol/L (135-145); TOTAL PROTEIN 7.6 g/dL (6.4-8.9)
[2024-12-27 14:39] LABS: LIPASE < 10 U/L (11-82)
[2024-12-27] MEDS: cefTRIAXone 1 GM VIAL IVP STA (14:56)
[2024-12-27 14:57] LABS: PARTIAL THROMBOPLASTIN TIME 24.4 secs (24.9-33.3)
[2024-12-27 15:01] LABS: INR 1.2 (0.8-1.2); PT - PROTHROMBIN TIME 13.3 secs (9.9-12.6)
[2024-12-27] MEDS: SODIUM CHLORIDE 0.9% 1,000 ML IV STA (15:01)
[2024-12-27] MEDS: ONDANSETRON 4 MG/2 ML VIAL IVP STA (15:09)
--- NOTE | 2024-12-27 15:09 | CT Report ---
PROCEDURE: CT Head WO INDICATIONS: altered TECHNIQUE: CT of the head was performed, without intravenous contrast. Reformats: Coronal and sagittal. For radiation dose reduction, the following was used: automated exposure control, adjustment of mA and/or kV according to patient size. COMPARISON: Yesterday's head CT FINDINGS: Image quality: Diagnostic CSF spaces: Basal cisterns are patent. Lateral ventricles are symmetric. Volume: Vascular calcifications. Periventricular white matter disease is commonly seen with chronic microangiopathy. Volume loss is present. These findings are moderate Brain: No intracranial hemorrhage. Nolen-white differentiation is grossly maintained. Craniofacial structures: Partial opacification of the right maxillary sinus IMPRESSION: No acute intracranial abnormality. No significant change from recent CT. No new hemorrhage. If there is high concern for parenchymal pathology, consider further evaluation with MRI. Reviewed by: Gaudencio Aguilera MD on 12/27/2024 3:08 PM PDT Approved by: Gaudencio Aguilera MD on 12/27/2024 3:08 PM PDT Station ID: [id number]
[2024-12-27] MEDS ORDERED: ACETAMINOPHEN 325 MG TABLET PO PRN (16:22)
[2024-12-27] MEDS ORDERED: SODIUM CHLORIDE FLUSH 0.9% 10 ML SYRINGE IVP PRN (16:22)
[2024-12-27] MEDS ORDERED: ONDANSETRON 4 MG/2 ML VIAL IVP PRN (16:22)
--- NOTE | 2024-12-27 16:57 | HISTORY & PHYSICAL EXAMINATION ---
Chief Complaint Chief Complaint Chief Complaint: Decreased mental alertness History of Present Illness Admitted From Admitted From:: Emergency department History Obtained From Records Reviewed: Emergency department records, PCP records History obtained from: Dr. Lerner-ED attending, , chart review Exam Limitations: Patient is essentially catatonic, unable to verbally communicate History of Present Illness HPI Comment/Other: Patient is a 64-year-old female with a PMH of cerebral autosomal dominant and arteriopathy with subcortical infarcts and leukoencephalopathy (CADSIL), Hypothyroidism, GERD, hyperlipidemia, who is wheelchair-bound at baseline presents to the ED with acute changes in mental status that started at approximately noon today. She had a similar presentation yesterday, and was brought to the ED for further evaluation. A telemetry medicine neurology consultation was obtained in the ED. And based on the patient's ED workup suggesting a possible UTI, neurologist felt that this was likely an acute metabolic encephalopathy secondary to infection rather than an acute neurological events. Neurology recommended observation with treatment of the underlying metabolic disturbance, in this case UTI, but did not feel like the patient required transfer or other stroke workup. She was given a dose of Rocephin in the ED and within a few hours she had completely resolved and went back to baseline. They were offered admission for observation however family and patient decided to go home. They were prescribed oral antibiotics from the ED yesterday, but did not pick them up yet, and she returns today with symptoms that started very similar to yesterday's presentation at approximately noon. She woke up this morning feeling normal, able to communicate, eat, but symptoms started to regress an hour or 2 later. Patient had a head CT and chest x-ray yesterday, with head CT unremarkable, chest x-ray also unrevealing. Head CT was repeated today and also showed no acute findings. Remainder of metabolic workup was only remarkable for abnormal UA Meds/Allgy Home Medications Ambulatory Orders Medication Instructions Recorded Confirmed ondansetron 4 mg disintegrating 4 mg translingual Q6H PRN Nausea / 11/18/20 12/27/24 tablet Vomiting #15 tabs Handicap Placard 05/19/24 12/26/24 lamotrigine 100 mg tablet 100 mg PO BID 06/09/2412/27 levothyroxine 88 mcg tablet 88 mcg PO QDAC #100 tabs 1 08/09/23 12/27/24 trazodone 50 mg tablet 50 mg PO HS PRN insomnia 12/27/24 omeprazole 20 mg capsule,delayed 20 mg PO QDAY #90 cap s 09/03/24 12/27/24 release rosuvastatin 10 mg tablet 10 mg PO QDAY #90 tabs 11/0612/27/24 cefpodoxime 100 mg tablet 100 mg PO BID 7 days #14 tab s 12/26/24 Allergies Allergies Allergy/AdvReac Type Severity Reaction Status Date / Time propoxyphene napsylate * AdvReac vomit Verified 12/27/24 16:55 (From Darvocet-N 100) [facility] Active Problems All Active Problems (Updated 12/27/24 @ 17:02 by Shin Morris MD) Complicated UTI (urinary tract infection) (Acute) CADASIL (Acute) Encephalopathy, metabolic (Acute) UTI (urinary tract infection) (Acute) Vitamin D deficiency (Acute) Right thyroid nodule (Acute) Hypothyroidism (Acute) Colon cancer screening (Acute) OP (osteoporosis) (Acute) Cerebral autosomal dominant arteriopathy with subcortical infarcts and leukoencephalopathy (Acute) Hyperglycemia (Acute) Allergic rhinitis (Acute) Nausea with vomiting, unspecified (Acute) Pain in left hip (Acute) Fatigue (Acute) Chronic diarrhea (Acute) Constipation (Acute) Incomplete bladder emptying (Acute) Neurogenic bladder (Acute) Asymptomatic bacteriuria (Acute) Cerebrovascular accident (CVA) (Acute) Hyperlipidemia (Acute) Medical History Medical History (Updated 12/27/24 @ 17:02 by Shin Morris MD) GERD (gastroesophageal reflux disease) HLD (hyperlipidemia) Social History Social History (Updated 12/27/24 @ 14:07 by Kathleen Garcia RN) Smoking Status: Never smoker If you are a former smoker, when did you quit? (Date/Year): 1981 Number of Years Smoked: 5 Do you dip or chew tobacco?: No Do you vape?: No Patient requests smoking cessation consult: No Initiate information on smoking cessation: No Living arrangement: At home Marital Status: Living Condition: With spouse/s.o. Support Person: Yes Relationship: Spouse Level: Assisted Home Mobility Equipment: Wheelchair Do you feel safe in your home environment?: Yes Suffered physical, verbal, emotional, or financial abuse?: No History of Abuse: No ETOH Use: None POLST Patient has POLST: No Review of Systems Status of ROS: unobtainable due to medical condition Prior Level of Functionality: Wheelchair-bound but able to eat, verbally communicate, and use of her upper extremities Exam Exam Vital Signs: Vital Signs x48h Temp Pulse Pulse Resp BP BP Pulse Ox 12/27/24 15:45 36.8 C 78 18 116/68 93 12/27/24 15:32 77 20 119/76 95 12/27/24 15:06 77 18 119/74 93 12/27/24 14:09 12/27/24 13:55 36.8 C 80 18 131/79 H 92 O2 Flow Rate 12/27/24 15:45 12/27/24 15:32 12/27/24 15:06 2 12/27/24 14:09 2 12/27/24 13:55 Constitutional normal general appearance and no apparent distress HENMT oropharynx normal Eyes PERRL Neck/C-Spine trachea midline Respiratory breath sounds equal bilaterally and normal respiratory effort Cardiovascular normal heart rate noted and regular rhythm noted Gastrointestinal abdomen soft to palpation, nontender to palpation and nondistended Extremities no deformity Neurology GCS calculation - Eye opening: Spontaneous Verbal response: None Motor response: Obeys Commands Brendan Coma Scale total score: 11 responds to verbal and squeezes both hands, She is able to utilize blinking for communication, she is able to laugh, smile but not speak Psychiatry staring into space, mouth open, Skin skin color normal Conclusion/Plan Problem List (1) Encephalopathy, metabolic: Plan: * Patient with baseline normal mental status, neurologically intact above the waist presenting in a near catatonic state unable to verbally communicate * Given that the patient had a similar presentation yesterday, and per neurology telemetry medicine consultation, recommendation was to treat the underlying cause, we will continue this treatment with inpatient IV antibiotics * Ceftriaxone ordered * Microbiology from yesterday's urine shows group B strep, pansensitive * Follow-up clinical course,Repeat labs in a.m. (2) Complicated UTI (urinary tract infection): Plan: * Patient has multiple urine cultures for beta-hemolytic group B strep, likely colonized * Given current presentation, will treat as complicated UTI, continue ceftriaxone given kruger sensitivity (3) CADASIL: Plan: * Patient with known history of this with prior stroke * Baseline is wheelchair-bound but normal mental status * Head CT from yesterday as well as today show no acute findings (4) Hypothyroidism: Plan: * Will resume home levothyroxine 88 mcg daily * Per outpatient PCP notes, has been noncompliant with levothyroxine, will check TSH with reflex T4 in the a.m. (5) Hyperlipidemia: Plan: * Cont statin (6) GERD (gastroesophageal reflux disease): Plan: * Cont PPI Lab Results Lab results reviewed: Yes 12/27/24 14:00 12/27/24 14:00 Diagnostic Imaging Results Diagnostic Imaging Results: positive Final report reviewed
[2024-12-27] MEDS: SODIUM CHLORIDE FLUSH 0.9% 10 ML SYRINGE IVP SCH (17:30)
[2024-12-27] MEDS: SODIUM CHLORIDE 0.9% 1,000 ML IV SCH (17:30)
[2024-12-27] MEDS: ATORVASTATIN 40 MG TABLET PO SCH (20:32)
[2024-12-27] MEDS: lamoTRIgine 100 MG TABLET PO SCH (20:32)
[2024-12-28] MEDS: traZODone 50 MG TABLET PO PRN (00:57)
[2024-12-28] MEDS: LEVOTHYROXINE 88 MCG TABLET PO SCH (06:17)
[2024-12-28] MEDS: PANTOPRAZOLE 40 MG TABLET PO SCH ×2 (06:17→06:18)
[2024-12-28] MEDS ORDERED: ENOXAPARIN 40 MG/0.4 ML SYRINGE SUBQ SCH (09:00)
--- NOTE | 2024-12-28 09:44 | Discharge Summary ---
"Discharge Summary Admit Date: 12/27/24 Discharge Date: 12/28/24 Discharging Provider: Shin Morris MD Primary Care Provider: Selene Quiroz PA-C Code Status: Do Not Attempt Resuscitation DIAGNOSES Admission Diagnoses: Acute metabolic encephalopathypresent on admission Complicated UTI Catosal Hypothyroidism Hyperlipidemia Discharge Diagnoses with Status of Each Condition: Acute metabolic encephalopathyimproved Complicated UTI - improved CADASIL - Stable Hypothyroidism - Stable Hyperlipidemia - Stable HPI History of Present Illness: Patient is a 64-year-old female with a PMH of cerebral autosomal dominant and arteriopathy with subcortical infarcts and leukoencephalopathy (CADSIL), Hypothyroidism, GERD, hyperlipidemia, who is wheelchair-bound at baseline presents to the ED with acute changes in mental status that started at approximately noon today. She had a similar presentation yesterday, and was brought to the ED for further evaluation. A telemetry medicine neurology consultation was obtained in the ED. And based on the patient's ED workup suggesting a possible UTI, neurologist felt that this was likely an acute metabolic encephalopathy secondary to infection rather than an acute neurological events. Neurology recommended observation with treatment of the underlying metabolic disturbance, in this case UTI, but did not feel like the patient required transfer or other stroke workup. She was given a dose of Rocephin in the ED and within a few hours she had completely resolved and went back to baseline. They were offered admission for observation however family and patient decided to go home. They were prescribed oral antibiotics from the ED yesterday, but did not pick them up yet, and she returns today with symptoms that started very similar to yesterday's presentation at approximately noon. She woke up this morning feeling normal, able to communicate, eat, but symptoms started to regress an hour or 2 later. Patient had a head CT and chest x-ray yesterday, with head CT unremarkable, chest x-ray also unrevealing. Head CT was repeated today and also showed no acute findings. Remainder of metabolic workup was only remarkable for abnormal UA CONSULTS | PROCEDURES Consultations: Telestroke neurology HOSPITAL COURSE Hospital Course: Patient was admitted to medical floor for observation. She was continued on supplemental IV fluids, and ceftriaxone was continued. Overnight she made improvements and by the morning she was able to converse and felt much better, claiming that she was back at her baseline. She did demonstrate some mild confusion, with respect to date but was overall significantly improved and her felt confident that this will continue to improve as it did 2 days ago, and was eager to take her home. She was felt to be medically stable for discharge with close observation and precautions for returning to ED. Her vital signs are stable and her lab work was unremarkable showing no evidence of leukocytosis. ALLERGIES Allergies Allergy/AdvReac Type Severity Reaction Status Date / Time propoxyphene napsylate * AdvReac vomit Verified 12/27/24 16:55 ([facility] MEDICATIONS Ambulatory Orders Medication Instructions Recorded Confirmed ondansetron 4 mg disintegrating 4 mg translingual Q6H PRN Nausea / 11/18/20 12/27/24 tablet Vomiting #15 tabs Handicap Placard 05/19/24 12/26/24 lamotrigine 100 mg tablet 100 mg PO BID 06/09/2412/27 levothyroxine 88 mcg tablet 88 mcg PO QDAC #100 tabs 1 08/09/23 12/27/24 trazodone 50 mg tablet 50 mg PO HS PRN insomnia 12/27/24 omeprazole 20 mg capsule,delayed 20 mg PO QDAY #90 cap s 09/03/24 12/27/24 release rosuvastatin 10 mg tablet 10 mg PO QDAY #90 tabs 11/0612/27/24 cefpodoxime 100 mg tablet 100 mg PO BID 7 days #14 tab s 12/26/24 PHYSICAL EXAM AT DISCHARGE Vital Signs: Vital Signs x48h Temp Pulse Resp BP Pulse Ox 12/28/24 08:20 36.6 C 71 16 123/71 96 12/28/24 05:00 37.2 C 79 20 128/70 92 General Appearance: positive No acute distress and Alert Neck: positive Nml inspection Respiratory: positive Breath sounds nml; negative No respiratory distress or Wheezes Cardiovascular: positive Regular rate & rhythm, No murmur, No gallop and Irregularly irregular Abdomen: positive No distention Skin: positive Color nml Extremities: positive No pedal edema Neurologic/Psychiatric: positive CN's nml (2-12), Motor nml and Mood/affect nml LABS 12/27/24 14:00 12/27/24 14:00 DIAGNOSTIC IMAGING Diagnostic Imaging Results: Prelim report reviewed TIME SPENT Time Spent in Discharge (Minutes): 36 Discharge Plan Discharge Patient Disposition: Home, Self Care Condition: Good Medically Cleared Date:: 12/28/24 Prescriptions: Continued omeprazole 20 mg capsule,delayed release(DR/EC) 20 mg PO QDAY Qty: 90 3RF rosuvastatin 10 mg tablet 10 mg PO QDAY Qty: 90 3RF ondansetron 4 MG tablet,disintegrating 4 mg translingual Q6H PRN (Reason: Nausea / Vomiting) Qty: 15 0RF cefpodoxime 100 mg tablet 100 mg PO BID 7 Days Qty: 14 0RF Rx Instructions: must administer with a meal/food lamotrigine 100 mg tablet 100 mg PO BID trazodone 50 mg tablet 50 mg PO HS PRN (Reason: insomnia) levothyroxine 88 mcg tablet 88 mcg PO QDAC Qty: 100 3RF Rx Instructions: Take 1 daily for thyroid and 1 1/2 daily on Sundays. (DME) Handicap Placard Unit See Rx Instructions .Route Rx Instructions: As directed Diet: Regular Print Language: [place] Patient Instructions: ED UTIs Women Stand Alone Forms: PCP List Follow-up Care: Selene Quiroz PA-C [Primary Care Provider] -"
[2024-12-28 09:58] LABS: THYROID STIMULATING HORMONE 2.08 uIU/mL (0.34-5.60)
[2024-12-28] MEDS: cefTRIAXone 1 GM in SODIUM CHLORIDE 0.9% MINIBAG 100 ML IV SCH (10:00)
[2024-12-28 13:17] VITALS: BP 127/78; TEMP 97.7; O2SAT 92
== END 2024-12-28 13:10 | disposition home or self-care (01) ==
LOC: ED 13:47 → MS2 13:47
PROVIDERS: ADMIT Family Medicine Sports Medicine; ATTEND Family Medicine Sports Medicine
DX: I67.850 Cerebral autosomal dominant arteriopathy with subcortical infarcts and leukoencephalopathy; E78.5 Hyperlipidemia, unspecified; E03.9 Hypothyroidism, unspecified; N30.00 Acute cystitis without hematuria; Z99.3 Dependence on wheelchair; K21.9 Gastro-esophageal reflux disease without esophagitis; G93.41 Metabolic encephalopathy